=== PATIENT | male | born 1960 | race Caucasian/White ===

== ENCOUNTER 2018-10-18 22:06 | Emergency (ER) | payer BC ==
--- NOTE | 2018-10-18 23:07 | RAD REPORT ---
EXAM DESCRIPTION: RAD - Chest Single View - 10/18/2018 10:57 pm CLINICAL HISTORY: Cough;Fever Chest pain. COMPARISON: <Comparisons> FINDINGS: Portable technique limits examination quality. The lungs are grossly clear. The heart is normal in size. No displaced fractures. IMPRESSION: No acute intrathoracic process suspected.
[2018-10-18 23:12] LABS: Absolute Lymphocytes (CBC) 1.8 K/uL (0.7-4.9); Eosinophils % 3.4 % (0-4.4); Hematocrit 36.2 % (39.6-49.0); Lymphocytes % 16.9 % (15.3-44.8); MPV 7.8 fL (7.6-11.3); Monocytes % 8.4 % (3.3-12.3); RBC Red Blood Cell Count 4.11 M/uL (4.33-5.43)
[2018-10-18 23:39] LABS: Albumin 3.1 g/dL (3.4-5.0); Bilirubin Total 0.8 mg/dL (0.2-1.0); Potassium 4.1 mmol/L (3.5-5.1); Protein, Total 6.9 g/dL (6.4-8.2)
[2018-10-18 23:42] LABS: Urine Blood TRACE (NEG); Urine Glucose NEGATIVE (NEG); Urine Protein 1+ (NEG); Urine Specific Gravity 1.015 (1.005-1.030)
[2018-10-18] MEDS ORDERED: NA CHLORIDE 0.9% 1,000 ML ONE (23:47)
[2018-10-18] MEDS ORDERED: MORPHINE 4 MG/ML SYR ONE (23:47)
[2018-10-18] MEDS ORDERED: ONDANSETRON 4 MG/2 ML VIAL ONE (23:47)
--- NOTE | 2018-10-19 00:12 | ER ---
Nurse's Notes [facility] Name: Leonard Fallon Age: 58 yrs Sex: Male : 1960 Arrival Date: 10/18/2018 Time: 22:08 Bed 14 Private MD: Diagnosis: Cellulitis of left lower limb-knee;Fever, unspecified Presentation: 10/18 22:19 Presenting complaint: states: He had knee replacement one week ago with Dr. olga Jarquin. This evening he spike a fever of 101.5. He took two Tylenol #3 around 9pm. Transition of care: patient was not received from another setting of care. Onset of symptoms was October 18, 2018. Risk Assessment: Do you want to hurt yourself or someone else? Patient reports no desire to harm self or others. Initial Sepsis Screen: Does the patient meet any 2 criteria? No. Patient's initial sepsis screen is negative. Does the patient have a suspected source of infection? No. Patient's initial sepsis screen is negative. Care prior to arrival: Medication(s) given: Tylenol #3- 2 tabs. 22:19 Method Of Arrival: Wheelchair ed1 22:19 Acuity: JOCELINE 3 ed1 Triage Assessment: 22:22 General: Appears uncomfortable, Behavior is calm, cooperative. Pain: Complains of pain ed1 in left knee Pain currently is 5 out of 10 on a pain scale. Quality of pain is described as aching. Historical: - Allergies: 22:22 Celebrex; ed1 22:22 Lortab; ed1 - Home Meds: 22:22 amlodipine 10 mg tab 1 tab once daily [Active]; Flomax 0.4 mg Oral cp24 1 cap once ed1 daily [Active]; aspirin 325 mg Oral tab 1 tab once daily [Active]; acetaminophen-codeine 300-15 mg Oral tab 2 tabs every 6 hours [Active]; - PMHx: 22:22 Hypertension; Kidney stones; ed1 - PSHx: 22:22 Knee surgery; Lithotripsy; ed1 - Immunization history:: Adult Immunizations up to date. - Social history:: Smoking status: Patient/guardian denies using tobacco. - Ebola Screening: : Patient negative for fever greater than or equal to 101.5 degrees Fahrenheit, and additional compatible Ebola Virus Disease symptoms Patient denies exposure to infectious person Patient denies travel to an Ebola-affected area in the 21 days before illness onset No symptoms or risks identified at this time. - Family history:: not pertinent. Screenin:20 Abuse screen: Denies threats or abuse. Nutritional screening: No deficits noted. jb4 Tuberculosis screening: No symptoms or risk factors identified. Fall Risk IV access (20 points). Ambulatory Aid- Crutches/Cane/Walker (15 pts). Gait- Impaired (20 pts.). Total Andrade Fall Scale indicates High Risk Score (45 or more points). Fall prevention measures have been instituted. Side Rails Up X 2 Placed Close to Nursing Station Frequent Obs/Assessments Occuring Family Present and informed to notify staff if the need to leave the bedside As available patient and family educated on Fall Prevention Program and Strategies. Assessment: 22:20 General: Appears in no apparent distress. uncomfortable, Behavior is calm, cooperative, jb4 appropriate for age. Pain: Complains of pain in left knee Pain does not radiate. Pain currently is 3 out of 10 on a pain scale. Quality of pain is described as stabbing, Pain began 2-3 days ago. Is continuous. Neuro: Level of Consciousness is awake, alert, obeys commands, Oriented to person, place, time, situation. Cardiovascular: Patient's skin is warm and dry. Respiratory: Airway is patent Respiratory effort is even, unlabored, Respiratory pattern is regular, symmetrical. GI: No signs and/or symptoms were reported involving the gastrointestinal system. : No deficits noted. EENT: No signs and/or symptoms were reported regarding the EENT system. Derm: Skin is pink, warm \T\ dry. Surgical site to the left knee. is reddened and inflamed, tender to the touch. Musculoskeletal: Circulation, motion, and sensation intact. Range of motion: limited in left knee. 23:28 Reassessment: Patient appears in no apparent distress at this time. Patient and/or jb4 family updated on plan of care and expected duration. Pain level reassessed. Patient is alert, oriented x 3, equal unlabored respirations, skin warm/dry/pink. back from ultrasound. 10/19 00:30 Reassessment: Patient appears in no apparent distress at this time. Patient and/or jb4 family updated on plan of care and expected duration. Pain level reassessed. Patient is alert, oriented x 3, equal unlabored respirations, skin warm/dry/pink. PT waiting for fluids to finish prior to d/c. 01:30 Reassessment: Patient appears in no apparent distress at this time. Patient and/or jb4 family updated on plan of care and expected duration. Pain level reassessed. Patient is alert, oriented x 3, equal unlabored respirations, skin warm/dry/pink. 02:30 Reassessment: Patient appears in no apparent distress at this time. Patient and/or jb4 family updated on plan of care and expected duration. Pain level reassessed. Patient is alert, oriented x 3, equal unlabored respirations, skin warm/dry/pink. Patient states feeling better. 03:00 Reassessment: Patient appears in no apparent distress at this time. Patient is alert, jb4 oriented x 3, equal unlabored respirations, skin warm/dry/pink. Pt assisted to the car via wheelchair, with patient, carrying patients belongings. verbalized understanding of d/c and follow up instrucitons. Vital Signs: 10/18 22:22 BP 131 / 78; Pulse 83; Resp 18; Temp 97(TE); Pulse Ox 97% on R/A; Weight 102.06 kg; ed1 Height 5 ft. 11 in. (180.34 cm); Pain 5/10; 23:42 BP 121 / 65; Pulse 84; Resp 12; Pulse Ox 95% on R/A; jb4 10/19 01:00 BP 123 / 71; Pulse 95; Resp 12; Pulse Ox 95% on R/A; jb4 02:30 BP 123 / 87; Pulse 88; Resp 16; Temp 98.3(O); Pulse Ox 95% on R/A; jb4 10/18 22:22 Body Mass Index 31.38 (102.06 kg, 180.34 cm) ed1 ED Course: 10/18 22:08 Patient arrived in ED. ag3 22:15 Larry Cueva, RN is Primary Nurse. jb4 22:20 Patient has correct armband on for positive identification. Bed in low position. Call jb4 light in reach. Side rails up X2. Pulse ox on. NIBP on. 22:21 Triage completed. ed1 22:22 Arm band placed on. ed1 22:25 Rojelio Oates MD is Attending Physician. [facility] 22:49 Chest Single View XRAY In Process Unspecified. EDMS 23:08 Inserted saline lock: 20 gauge in left wrist, using aseptic technique. Blood collected. jb4 23:08 Initial lab(s) drawn, by me, sent to lab. First set of blood cultures drawn. jb4 23:25 US Extremity Venous Unilateral Ltd In Process Unspecified. EDMS 23:54 Jermaine Robles MD is Referral Physician. [facility] 10/19 02:30 No provider procedures requiring assistance completed. IV discontinued, intact, jb4 bleeding controlled, No redness/swelling at site. Administered Medications: 10/18 23:37 Drug: Zofran 4 mg Route: IVP; Site: left wrist; [facility] 10/19 01:18 Follow up: Response: No adverse reaction [facility] 10/18 23:39 Drug: NS 0.9% 1000 ml Route: IV; Rate: 1 bolus; Site: left wrist; [facility] 10/19 00:10 Follow up: Response: No adverse reaction; IV Status: Completed infusion; IV Intake: jb4 1000ml 10/18 23:40 Drug: morphine 4 mg Route: IVP; Site: left wrist; 4 10/19 00:10 Follow up: Response: No adverse reaction; Pain is decreased jb4 00:00 Drug: Bactrim (160 mg-800 mg (DS) 1 tablet Route: PO; jb4 01:18 Follow up: Response: No adverse reaction jb4 00:00 Drug: Doxycycline 200 mg Route: PO; jb4 01:18 Follow up: Response: No adverse reaction jb4 00:10 Drug: vancoMYCIN 2 grams Route: IVPB; Rate: calculated rate; Site: left wrist; jb4 02:10 Follow up: Response: No adverse reaction; IV Status: Completed infusion; IV Intake: jb4 500ml Intake: 00:10 IV: 1000ml; Total: 1000ml. jb4 02:10 IV: 500ml; Total: 1500ml. jb4 Outcome: 10/18 23:55 Discharge ordered by . [facility] 10/19 02:30 Discharged to home via wheelchair. jb4 Condition: stable Discharge instructions given to patient, family, Instructed on discharge instructions, follow up and referral plans. medication usage, Demonstrated understanding of instructions, follow-up care, medications, Prescriptions given X 4. 03:04 Patient left the ED. jb4 Signatures: Dispatcher [employer] EDMS Rojelio Oates MD MD cha Riggs, Erika RN RN ed1 Larry Cueva RN RN jb4 Jie Ryan ag3 Corrections: (The following items were deleted from the chart) 10/18 23:28 22:50 General: Appears in no apparent distress. uncomfortable, Behavior is calm, jb4 cooperative, appropriate for age, jb4 23: 22:50 Pain: Complains of pain in left knee Pain does not radiate. Pain currently is 3 jb4 out of 10 on a pain scale. Quality of pain is described as stabbing, Pain began 2-3 days ago. Is continuous, jb4 23: 22:50 Neuro: Level of Consciousness is awake, alert, obeys commands, Oriented to jb4 person, place, time, situation, jb4 23: 22:50 Cardiovascular: Patient's skin is warm and dry. jb4 jb4 23: 22:50 Respiratory: Airway is patent Respiratory effort is even, unlabored, Respiratory jb4 pattern is regular, symmetrical, jb4 : 22:50 GI: No signs and/or symptoms were reported involving the gastrointestinal system. jb4 jb4 23: 22:50 : No deficits noted. jb4 jb4 23: 22:50 EENT: No signs and/or symptoms were reported regarding the EENT system. jb4 jb4 23: 22:50 Derm: Skin is pink, warm \T\ dry. Surgical site to the left knee. is reddened and jb4 inflamed, tender to the touch. jb4 23: 22:50 Musculoskeletal: Circulation, motion, and sensation intact. Range of motion: jb4 limited in left knee jb4
--- NOTE | 2018-10-19 00:13 | EDPHYS ---
Physician Documentation [facility] Name: Leonard Fallon Age: 58 yrs Sex: Male : 1960 Arrival Date: 10/18/2018 Time: 22:08 Bed 14 Private MD: DUNCAN Physician Rojelio Oates HPI: 10/18 22:37 This 58 yrs old Male presents to ER via Wheelchair with complaints of Leg willa Pain, Fever. 22:37 The patient presents with decreased range of motion, pain, swelling, tenderness. The willa complaints affect the lateral aspect of left knee, medial aspect of left knee and left knee. Context: The problem was sustained at home, resulted from an unknown cause. Onset: The symptoms/episode began/occurred 3 day(s) ago. Modifying factors: The symptoms are alleviated by nothing. elevating leg, remaining still, the symptoms are aggravated by movement, weight bearing, bending knee. Associated signs and symptoms: Pertinent positives: swelling, warmth, weakness, of the lateral aspect of left knee, medial aspect of left knee and left knee. Severity of symptoms: At their worst the symptoms were moderate, in the emergency department the symptoms are unchanged. The patient has not experienced similar symptoms in the past. Historical: - Allergies: 22:22 Celebrex; ed1 22:22 Lortab; ed1 - Home Meds: 22:22 amlodipine 10 mg tab 1 tab once daily [Active]; Flomax 0.4 mg Oral cp24 1 cap once ed1 daily [Active]; aspirin 325 mg Oral tab 1 tab once daily [Active]; acetaminophen-codeine 300-15 mg Oral tab 2 tabs every 6 hours [Active]; - PMHx: 22:22 Hypertension; Kidney stones; ed1 - PSHx: 22:22 Knee surgery; Lithotripsy; ed1 - Immunization history:: Adult Immunizations up to date. - Social history:: Smoking status: Patient/guardian denies using tobacco. - Ebola Screening: : Patient negative for fever greater than or equal to 101.5 degrees Fahrenheit, and additional compatible Ebola Virus Disease symptoms Patient denies exposure to infectious person Patient denies travel to an Ebola-affected area in the 21 days before illness onset No symptoms or risks identified at this time. - Family history:: not pertinent. ROS: 22:37 Constitutional: Negative for fever, chills, and weight loss, Eyes: Negative for injury, willa pain, redness, and discharge, ENT: Negative for injury, pain, and discharge, Neck: Negative for injury, pain, and swelling, Cardiovascular: Negative for chest pain, palpitations, and edema, Respiratory: Negative for shortness of breath, cough, wheezing, and pleuritic chest pain, Abdomen/GI: Negative for abdominal pain, nausea, vomiting, diarrhea, and constipation, Back: Negative for injury and pain, : Negative for injury, bleeding, discharge, and swelling, Skin: Negative for injury, rash, and discoloration, Neuro: Negative for headache, weakness, numbness, tingling, and seizure, Psych: Negative for depression, anxiety, suicide ideation, homicidal ideation, and hallucinations, Allergy/Immunology: Negative for hives, rash, and allergies, Endocrine: Negative for neck swelling, polydipsia, polyuria, polyphagia, and marked weight changes, Hematologic/Lymphatic: Negative for swollen nodes, abnormal bleeding, and unusual bruising. 22:37 MS/extremity: Positive for decreased range of motion, pain, swelling, tenderness, of the lateral aspect of left knee, medial aspect of left knee and left knee. Exam: 22:37 Constitutional: This is a well developed, well nourished patient who is awake, alert, willa and in no acute distress. Head/Face: Normocephalic, atraumatic. Eyes: Pupils equal round and reactive to light, extra-ocular motions intact. Lids and lashes normal. Conjunctiva and sclera are non-icteric and not injected. Cornea within normal limits. Periorbital areas with no swelling, redness, or edema. ENT: Nares patent. No nasal discharge, no septal abnormalities noted. Tympanic membranes are normal and external auditory canals are clear. Oropharynx with no redness, swelling, or masses, exudates, or evidence of obstruction, uvula midline. Mucous membranes moist. Neck: Trachea midline, no thyromegaly or masses palpated, and no cervical lymphadenopathy. Supple, full range of motion without nuchal rigidity, or vertebral point tenderness. No Meningismus. Chest/axilla: Normal chest wall appearance and motion. Nontender with no deformity. No lesions are appreciated. Cardiovascular: Regular rate and rhythm with a normal S1 and S2. No gallops, murmurs, or rubs. Normal PMI, no JVD. No pulse deficits. Respiratory: Lungs have equal breath sounds bilaterally, clear to auscultation and percussion. No rales, rhonchi or wheezes noted. No increased work of breathing, no retractions or nasal flaring. Abdomen/GI: Soft, non-tender, with normal bowel sounds. No distension or tympany. No guarding or rebound. No evidence of tenderness throughout. Back: No spinal tenderness. No costovertebral tenderness. Full range of motion. Male : Normal genitalia with no discharge or lesions. Skin: Warm, dry with normal turgor. Normal color with no rashes, no lesions, and no evidence of cellulitis. Neuro: Awake and alert, GCS 15, oriented to person, place, time, and situation. Cranial nerves II-XII grossly intact. Motor strength 5/5 in all extremities. Sensory grossly intact. Cerebellar exam normal. Normal gait. Psych: Awake, alert, with orientation to person, place and time. Behavior, mood, and affect are within normal limits. 22:37 Musculoskeletal/extremity: Extremities: noted in the left leg: decreased ROM, erythema, pain, swelling, tenderness. Vital Signs: 22:22 BP 131 / 78; Pulse 83; Resp 18; Temp 97(TE); Pulse Ox 97% on R/A; Weight 102.06 kg; ed1 Height 5 ft. 11 in. (180.34 cm); Pain 5/10; 23:42 BP 121 / 65; Pulse 84; Resp 12; Pulse Ox 95% on R/A; jb4 10/19 01:00 BP 123 / 71; Pulse 95; Resp 12; Pulse Ox 95% on R/A; jb4 02:30 BP 123 / 87; Pulse 88; Resp 16; Temp 98.3(O); Pulse Ox 95% on R/A; jb4 10/18 22:22 Body Mass Index 31.38 (102.06 kg, 180.34 cm) ed1 MDM: 10/18 22:25 Patient medically screened. [facility] 22:39 Data reviewed: vital signs, nurses notes, lab test result(s), radiologic studies, [facility] doppler, plain films. 23:58 ED course: dw with dr haddad, treat as cellulitis, folllow up with dr haddad in the [facility] am, pt knows and has the appointment . 10/18 22:37 Order name: CBC with Diff; Complete Time: 23:19 [facility] 10/18 22:37 Order name: Comprehensive Metabolic Panel; Complete Time: 23:52 [facility] 10/18 22:37 Order name: Blood Culture Adult (2) [facility] 10/18 22:37 Order name: US Extremity Venous Unilateral Ltd [facility] 10/18 22:37 Order name: Urine Culture [facility] 10/18 23:28 Order name: Urine Dipstick--Ancillary (enter results); Complete Time: 23:52 [facility] 10/18 22:37 Order name: Urine Dipstick-Ancillary (obtain specimen); Complete Time: 23:28 [facility] 10/18 22:37 Order name: Chest Single View XRAY; Complete Time: 23:19 [facility] Administered Medications: 23:37 Drug: Zofran 4 mg Route: IVP; Site: left wrist; [facility] 10/19 01:18 Follow up: Response: No adverse reaction [facility] 10/18 23:39 Drug: NS 0.9% 1000 ml Route: IV; Rate: 1 bolus; Site: left wrist; [facility] 10/19 00:10 Follow up: Response: No adverse reaction; IV Status: Completed infusion; IV Intake: jb4 1000ml 10/18 23:40 Drug: morphine 4 mg Route: IVP; Site: left wrist; [facility] 10/19 00:10 Follow up: Response: No adverse reaction; Pain is decreased [facility] 00:00 Drug: Bactrim (160 mg-800 mg (DS) 1 tablet Route: PO; [facility] 01:18 Follow up: Response: No adverse reaction 00:00 Drug: Doxycycline 200 mg Route: PO; [facility] 01:18 Follow up: Response: No adverse reaction [facility] 00:10 Drug: vancoMYCIN 2 grams Route: IVPB; Rate: calculated rate; Site: left wrist; [facility] 02:10 Follow up: Response: No adverse reaction; IV Status: Completed infusion; IV Intake: jb4 500ml Disposition: 10/18/18 23:55 Discharged to Home. Impression: Cellulitis of left lower limb - knee, Fever, unspecified. - Condition is Stable. - Discharge Instructions: Cellulitis, Adult, Fever, Adult, Cellulitis, Adult, [id number], Fever, Adult, [id number]. - Prescriptions for Doxycycline Hyclate 100 mg Oral Tablet - take 1 tablet by ORAL route every 12 hours; 20 tablet. Bactrim DS 800- 160 mg Oral Tablet - take 1 tablet by ORAL route every 12 hours for 10 days; 20 tablet. Tylenol- Codeine #3 300-30 mg Oral Tablet - take 2 tablets by ORAL route every 6 hours As needed; 24 tablet. Ibuprofen 600 mg Oral Tablet - take 1 tablet by ORAL route every 6 hours As needed take with food; 21 tablet. - Medication Reconciliation Form, Thank You Letter, Antibiotic Education, Prescription Opioid Use form. - Follow up: Private Physician; When: 2 - 3 days; Reason: Recheck today's complaints, Continuance of care, Re-evaluation by your physician. Follow up: Jermaine Robles MD; When: Tomorrow; Reason: Recheck today's complaints, Continuance of care, Re-evaluation by your physician. - Problem is new. - Symptoms have improved. Signatures: Dispatcher [employer] EDMS Rojelio Oates MD MD cha Riggs, Erika RN RN ed1 Larry Cueva RN RN jb4 Corrections: (The following items were deleted from the chart) 03:04 10/18 23:55 10/18/2018 23:55 Discharged to Home. Impression: Cellulitis of left lower jb4 limb - knee; Fever, unspecified. Condition is Stable. Forms are Medication Reconciliation Form, Thank You Letter, Antibiotic Education, Prescription Opioid Use. Follow up: Private Physician; When: 2 - 3 days; Reason: Recheck today's complaints, Continuance of care, Re-evaluation by your physician. Follow up: Jermaine Robles; When: Tomorrow; Reason: Recheck today's complaints, Continuance of care, Re-evaluation by your physician. Problem is new. Symptoms have improved. willa
[2018-10-19] MEDS ORDERED: VANCOMYCIN 1 GM/VIAL ONE (00:20)
[2018-10-19] MEDS ORDERED: SMZ./TMP. 800/160 MG TABLET ONE (00:20)
[2018-10-19] MEDS ORDERED: NA CHLORIDE 0.9% 500 ML ONE (00:21)
[2018-10-19] MEDS ORDERED: DOXYCYCLINE 100 MG CAP PO ONE (00:21)
--- NOTE | 2018-10-19 08:08 | RAD REPORT ---
EXAM DESCRIPTION: US - Extremity Venous Uni Ltd - 10/18/2018 11:25 pm CLINICAL HISTORY: PAIN Leg swelling and edema. COMPARISON: No comparisons FINDINGS: Left lower extremity venous system was interrogated with Doppler technique. Normal flow, c ompressibility and augmentation was noted. There is no DVT present. IMPRESSION: No evidence of left lower extremity deep venous thrombosis.
== END 2018-10-19 03:04 | disposition home or self-care (01) ==
LOC: ER 22:06
DX: L03.116 Cellulitis of left lower limb (principal); Z88.6 Allergy status to analgesic agent; Z88.5 Allergy status to narcotic agent; Z79.82 Long term (current) use of aspirin; I10 Essential (primary) hypertension
CPT/HCPCS: 36415; 71045; 80053; 81003; 85025; 87040; 87086; 87088; 93971; 96361; 96365; 96366; 96375; 99284; J2405; J7030

== ENCOUNTER 2022-12-15 21:53 | Emergency (ER) | payer BC ==
--- OUTSIDE RECORDS SUMMARY | 2022-12-15 21:59 | XMS REPORT | Continuity of Care Document ---
:1960 Author Organization [facility] Address [address] [place] [address] [place] [id number] Care Team Providers Name Role Phone Larisa Hunt DO Primary Care Physician MARGARET AMAYA Attending Clinician Unavailable Pob, [facility] Main Attending Clinician Unavailable Yudy Santizo MD Attending Clinician YUDY SANTIZO Attending Clinician Unavailable Doctor Unassigned, [place] Attending Clinician Unavailable Margaret Villegas Attending Clinician JOSE JORDAN Attending Clinician Unavailable Jose Jordan MD Attending Clinician Larisa Hunt DO Attending Clinician Memo Palumbo MD Attending Clinician LARISA HUNT Attending Clinician Unavailable William Peacock MD Attending Clinician [phone] WILLIAM PEACOCK Attending Clinician Unavailable Vls-Lab Attending Clinician Unavailable 2, Lauren Mda Procedure Rm Attending Clinician Unavailable Only, Adc Test Attending Clinician Unavailable Eben Sánchez MD Attending Clinician EBEN SÁNCHEZ Attending Clinician Unavailable Maninder SANCHEZ, Janel Palumbo Attending Clinician Unavailable Rosanne Almonte MD Attending Clinician ROSANNE ALMONTE Attending Clinician Unavailable MARGARET AMAYA Admitting Clinician Unavailable YUDY SANTIZO Admitting Clinician Unavailable WILLIAM PEACOCK Admitting Clinician Unavailable William Peacock MD Admitting Clinician Payers Payer Name Policy Type Policy Number Effective Date Expiration Date S mahnaz [facility] [id number] 2018 00:00:00 Problems Condition Condition Condition Status Onset Resolution Last Treating Co mments Source Name Details Category Date Date Treatment Clinician Date No known No known Disease Unive rs active active ity of problems problems [facility] Allergies, Adverse Reactions, Alerts Allergy Allergy Status Severity Reaction(s) Onset Inactive Treating Comm ents Source Name Type Date Date Clinician CELECOXI DRUG Active Unknown-Cmnt 2019-0 Un arlet B INGREDI 2-25 ity of 00:00: [address] HYDROCOD DRUG Active N/V 2020-0 Univers ONE-ACET 2-25 ity of AMINOPHE 00:00: [address] Celecoxi Drug Active Unknown - 0 Unive rs b Allergy See comments 2-25 ity of 00:00: [address] Hydrocod Drug Active Nausea 2019-0 Univers one-Acet Allergy and/or 2-25 ity of aminophe Vomiting 00:00: [address] Social History Social Habit Start Date Stop Date Quantity Comments Source Gender identity [facility] to 2022-07-21 2022-07-31 Not sure [facility] SARS-CoV-2 (event) 00:00:00 09:05:00 [facility] History of Social 2022-06-24 2022-06-24 Univers ity of function 00:00:00 00:00:00 [facility] Tobacco use and 2021-01-28 2021-01-28 Smokeless Universit y of exposure 00:00:00 00:00:00 tobacco non-user [facility] Sex Assigned At [birth year] Universit y of 00:00:00 00:00:00 [facility] Smoking Status Start Date Stop Date Source Never smoked [facility] Medications Ordered Filled Start Stop Current Ordering Indication Dosage Frequency Signature Comments Components Source Medication Medication Date Date Medication? Clinician (SIG) Name Name iopamidol No [id number] 130mL 130 mL, Univers (ISOVUE 07 04-07 Intravenou ity o f 370-500 mL) 14:45: 14:41 s, ONCE, 1 [place] injection 00 :00 dose, On Medica l 130 mL 07/31/22 Branch at 0945, Routine Cyanocobala 2020-04 Yes Univer s min-Cobamam 1-18 ity of daria (B12) 05:47: [place] [facility] vitamin B 2020-04 Yes 1{tbl} Take 1 Univ ers complex/fol 1-18 tablet by ity of ic acid [facility] [address] [place] [address] IC ACID [place]) CALCIUM 2020-04 Yes 1{tbl} Take 1 Univer s CARBONATE-V 1-18 tablet by ity of ITAMIN D2 05:47: mouth. [address] Cyanocobala 2020-04 Yes Univer s min-Cobamam 1-18 ity of daria (B12) 05:47: [place] [facility] vitamin B 2020-04 Yes 1{tbl} Take 1 Univ ers complex/fol 1-18 tablet by ity of ic acid (B 05:47: mouth. [place] COMPLEX-FOL [address] [place] [address] IC ACID [place]) CALCIUM 2020-04 Yes 1{tbl} Take 1 Univer s CARBONATE-V 1-18 tablet by ity of ITAMIN D2 05:47: mouth. [address] Cyanocobala 2020-04 Yes Univer s min-Cobamam 1-18 ity of daria (B12) 05:47: [place] [facility] vitamin B 2020-04 Yes 1{tbl} Take 1 Univ ers complex/fol 1-18 tablet by ity of ic acid (B 05:47: mouth. [place] COMPLEX-FOL [address] [place] [address] IC ACID [place]) CALCIUM 2020-04 Yes 1{tbl} Take 1 Univer s CARBONATE-V 1-18 tablet by ity of ITAMIN D2 05:47: mouth. [address] Cyanocobala 2020-04 Yes Univer s min-Cobamam 1-18 ity of daria (B12) 05:47: [place] 5,000- [facility] vitamin B 2020-04 Yes 1{tbl} Take 1 Univ ers complex/fol 1-18 tablet by ity of ic acid (B 05:47: mouth. [place] COMPLEX-FOL [address] [place] [address] IC ACID [place]) CALCIUM 2020-04 Yes 1{tbl} Take 1 Univer s CARBONATE-V 1-18 tablet by ity of ITAMIN D2 05:47: mouth. [place] ORAL [address] [place] [address] Cyanocobala 2020-04 Yes Univer s min-Cobamam 1-18 ity of daria (B12) 05:47: - [facility] vitamin B 2020-04 Yes 1{tbl} Take 1 Univ ers complex/fol 1-18 tablet by ity of ic acid (B 05:47: mouth. [place] COMPLEX-FOL [address] [place] [address] IC ACID [place]) CALCIUM 2020-04 Yes 1{tbl} Take 1 Univer s CARBONATE-V 1-18 tablet by ity of ITAMIN D2 05:47: mouth. [place] ORAL [address] [place] [address] Cyanocobala 2020-04 Yes Univer s min-Cobamam 1-18 ity of daria (B12) 05:47: - [facility] vitamin B 2020-04 Yes 1{tbl} Take 1 Univ ers complex/fol 1-18 tablet by ity of ic acid (B 05:47: mouth. [place] COMPLEX-FOL [address] [place] [address] IC ACID [place]) CALCIUM 2020-04 Yes 1{tbl} Take 1 Univer s CARBONATE-V 1-18 tablet by ity of ITAMIN D2 05:47: mouth. [place] ORAL [address] [place] [address] Cyanocobala 2020-04 Yes Univer s min-Cobamam 1-18 ity of daria (B12) 05:47: [facility] vitamin B 2020-04 Yes 1{tbl} Take 1 Univ ers complex/fol 1-18 tablet by ity of ic acid (B 05:47: mouth. [place] COMPLEX-FOL [address] [place] [address] IC ACID [place]) CALCIUM 2020-04 Yes 1{tbl} Take 1 Univer s CARBONATE-V 1-18 tablet by ity of ITAMIN D2 05:47: mouth. [place] ORAL [address] [place] [address] Cyanocobala 2020-04 Yes Univer s min-Cobamam 1-18 ity of daria (B12) 05:47: - [facility] vitamin B 2020-04 Yes 1{tbl} Take 1 Univ ers complex/fol 1-18 tablet by ity of ic acid (B 05:47: mouth. [place] COMPLEX-FOL [address] [place] [address] IC ACID [place]) CALCIUM 2020-04 Yes 1{tbl} Take 1 Univer s CARBONATE-V 1-18 tablet by ity of ITAMIN D2 05:47: mouth. [place] ORAL [address] [place] [address] Cyanocobala 2020-04 Yes Univer s min-Cobamam 1-18 ity of daria (B12) 05:47: [place] [facility] vitamin B 2020-04 Yes 1{tbl} Take 1 Univ ers complex/fol 1-18 tablet by ity of ic acid (B 05:47: mouth. [place] COMPLEX-FOL [address] [place] [address] IC ACID [place]) CALCIUM 2020-04 Yes 1{tbl} Take 1 Univer s CARBONATE-V 1-18 tablet by ity of ITAMIN D2 05:47: mouth. [place] ORAL [address] [place] [address] Cyanocobala 2020-04 Yes Univer s min-Cobamam 1-18 ity of daria (B12) 05:47: [place] [facility] vitamin B 2020-04 Yes 1{tbl} Take 1 Univ ers complex/fol 1-18 tablet by ity of ic acid (B 05:47: mouth. [place] COMPLEX-FOL [address] [place] [address] IC ACID [place]) CALCIUM 2020-04 Yes 1{tbl} Take 1 Univer s CARBONATE-V 1-18 tablet by ity of ITAMIN D2 05:47: mouth. [place] ORAL [address] [place] [address] Cyanocobala 2020-04 Yes Univer s min-Cobamam 1-18 ity of daria (B12) 05:47: [place] ,- [facility] vitamin B 2020-04 Yes 1{tbl} Take 1 Univ ers complex/fol 1-18 tablet by ity of ic acid (B 05:47: mouth. [place] COMPLEX-FOL [address] [place] [address] IC ACID [place]) CALCIUM 2020-04 Yes 1{tbl} Take 1 Univer s CARBONATE-V 1-18 tablet by ity of ITAMIN D2 05:47: mouth. [place] ORAL 03 [facility] Branch Cyanocobala 2020-04 Yes Univer s min-Cobamam 1-18 ity of daria (B12) 05:47: ,- [facility] vitamin B 2020-04 Yes 1{tbl} Take 1 Univ ers complex/fol 1-18 tablet by ity of ic acid (B 05:47: mouth. [place] COMPLEX-FOL Medical IC ACID [place]) CALCIUM 2020-04 Yes 1{tbl} Take 1 Univer s CARBONATE-V 1-18 tablet by ity of ITAMIN D2 05:47: mouth. [place] ORAL [address] [place] [address] Branch Cyanocobala 2020-04 Yes Univer s min-Cobamam 1-18 ity of daria (B12) 05:47: [place] - [facility] vitamin B 2020-04 Yes 1{tbl} Take 1 Univ ers complex/fol 1-18 tablet by ity of ic acid (B 05:47: mouth. [place] COMPLEX-FOL [address] [place] [address] IC ACID [place]) CALCIUM 2020-04 Yes 1{tbl} Take 1 Univer s CARBONATE-V 1-18 tablet by ity of ITAMIN D2 05:47: mouth. [place] ORAL [address] [place] [address] Cyanocobala 2020-04 Yes Univer s min-Cobamam 1-18 ity of daria (B12) 05:47: - [facility] vitamin B 2020-04 Yes 1{tbl} Take 1 Univ ers complex/fol 1-18 tablet by ity of ic acid (B 05:47: mouth. [place] COMPLEX-FOL 03 Medical IC ACID [place]) CALCIUM 2020-04 Yes 1{tbl} Take 1 Univer s CARBONATE-V 1-18 tablet by ity of ITAMIN D2 05:47: mouth. [place] ORAL [address] [place] [address] Cyanocobala 2020-04 Yes Univer s min-Cobamam 1-18 ity of daria (B12) 05:47: [place] - [facility] vitamin B 2020-04 Yes 1{tbl} Take 1 Univ ers complex/fol 1-18 tablet by ity of ic acid (B 05:47: mouth. [place] COMPLEX-FOL 03 [facility] IC ACID [place]) CALCIUM 2020-04 Yes 1{tbl} Take 1 Univer s CARBONATE-V 1-18 tablet by ity of ITAMIN D2 05:47: mouth. [address] Cyanocobala 2020-04 Yes Univer s min-Cobamam 1-18 ity of daria (B12) 05:47: [place] 5,000-[address] [place] [address] mcg Lozg Branch vitamin B 2020-04 Yes 1{tbl} Take 1 Univ ers complex/fol 1-18 tablet by ity of ic acid (B 05:47: mouth. [facility] IC ACID [place]) CALCIUM 2020-04 Yes 1{tbl} Take 1 Univer s CARBONATE-V 1-18 tablet by ity of ITAMIN D2 05:47: mouth. [address] calcium 2020-04 Yes 1{tbl} Take 1 Univer s citrate-vit 1-16 tablet by ity of lazar D3 315 17:47: [place]. [place] mg-5 mcg 49 [facility] (200 unit) Branch per tablet Docosahexan 2020-04 Yes 1{capsu Take 1 U nivers oic 1-16 le} capsule by ity of Acid-E[place] 17:47: [place]. [place] pent 49 [facility] 120-180 mg Branch Cap magnesium 2020-04 Yes 296mL Take 296 Uni vers citrate 1-16 mL by ity of solution 17:47: mouth. [address] niacin 500 2020-04 Yes 1{capsu Take 1 Un arlet mg CR 1-16 le} capsule by ity of capsule 17:47: mouth. [address] omeprazole 2020-04 Yes 40mg Take 40 mg U nivers 40 mg 1-16 by mouth. ity of capsule 17:47: [address] calcium 2020-04 Yes 1{tbl} Take 1 Univer s citrate-vit 1-16 tablet by ity of lazar D3 315 17:47: mouth. [place] mg-5 mcg 49 Medical (200 unit) Branch per tablet Docosahexan 2020-04 Yes 1{capsu Take 1 U nivers oic 1-16 le} capsule by ity of Acid-[place] 17:47: mouth. [place] pent 49 [facility] 120-180 mg Branch Cap magnesium 2020-04 Yes 296mL Take 296 Uni vers citrate 1-16 mL by ity of solution 17:47: mouth. [address] niacin 500 2020-04 Yes 1{capsu Take 1 Un arlet mg CR 1-16 le} capsule by ity of capsule 17:47: mouth. [address] omeprazole 2020-04 Yes 40mg Take 40 mg U nivers 40 mg 1-16 by mouth. ity of capsule 17:47: [address] calcium 2020-04 Yes 1{tbl} Take 1 Univer s citrate-vit 1-16 tablet by ity of lazar D3 315 17:47: mouth. [place] mg-5 mcg 49 Medical (200 unit) Branch per tablet Docosahexan 2020-04 Yes 1{capsu Take 1 U nivers oic 1-16 le} capsule by ity of Acid-E[place]osa 17:47: mouth. [place] pent 49 [facility] 120-180 mg Branch Cap magnesium 2020-04 Yes 296mL Take 296 Uni vers citrate 1-16 mL by ity of solution 17:47: mouth. [address] niacin 500 2020-04 Yes 1{capsu Take 1 Un arlet mg CR 1-16 le} capsule by ity of capsule 17:47: mouth. [address] omeprazole 2020-04 Yes 40mg Take 40 mg U nivers 40 mg 1-16 by mouth. ity of capsule 17:47: [address] calcium 2020-04 Yes 1{tbl} Take 1 Univer s citrate-vit 1-16 tablet by ity of lazar D3 315 17:47: mouth. [place] mg-5 mcg 49 Medical (200 unit) Branch per tablet Docosahexan 2020-04 Yes 1{capsu Take 1 U nivers oic 1-16 le} capsule by ity of Acid-E[place]osa 17:47: mouth. [place] pent 49 [facility] 120-180 mg Branch Cap magnesium 2020-04 Yes 296mL Take 296 Uni vers citrate 1-16 mL by ity of solution 17:47: mouth. [address] niacin 500 2020-04 Yes 1{capsu Take 1 Un arlet mg CR 1-16 le} capsule by ity of capsule 17:47: mouth. [address] omeprazole 2020-04 Yes 40mg Take 40 mg U nivers 40 mg 1-16 by mouth. ity of capsule 17:47: [address] calcium 2020-04 Yes 1{tbl} Take 1 Univer s citrate-vit 1-16 tablet by ity of lazar D3 315 17:47: mouth. [place] mg-5 mcg 49 Medical (200 unit) Branch per tablet Docosahexan 2020-04 Yes 1{capsu Take 1 U nivers oic 1-16 le} capsule by ity of Acid-E[place]osa 17:47: mouth. [place] pent 49 [facility] 120-180 mg Branch Cap magnesium 2020-04 Yes 296mL Take 296 Uni vers citrate 1-16 mL by ity of solution 17:47: mouth. [address] niacin 500 2020-04 Yes 1{capsu Take 1 Un arlet mg CR 1-16 le} capsule by ity of capsule 17:47: mouth. [address] omeprazole 2020-04 Yes 40mg Take 40 mg U nivers 40 mg 1-16 by mouth. ity of capsule 17:47: [address] calcium 2020-04 Yes 1{tbl} Take 1 Univer s citrate-vit 1-16 tablet by ity of lazar D3 315 17:47: mouth. [place] mg-5 mcg 49 Medical (200 unit) Branch per tablet Docosahexan 2020-04 Yes 1{capsu Take 1 U nivers oic 1-16 le} capsule by ity of Acid-Eicosa 17:47: mouth. [place] pent 49 [facility] 120-180 mg Branch Cap magnesium 2020-04 Yes 296mL Take 296 Uni vers citrate 1-16 mL by ity of solution 17:47: mouth. [address] niacin 500 2020-04 Yes 1{capsu Take 1 Un arlet mg CR 1-16 le} capsule by ity of capsule 17:47: mouth. [address] omeprazole 2020-04 Yes 40mg Take 40 mg U nivers 40 mg 1-16 by mouth. ity of capsule 17:47: [address] calcium 2020-04 Yes 1{tbl} Take 1 Univer s citrate-vit 1-16 tablet by ity of lazar D3 315 17:47: mouth. [place] mg-5 mcg 49 Medical (200 unit) Branch per tablet Docosahexan 2020-04 Yes 1{capsu Take 1 U nivers oic 1-16 le} capsule by ity of Acid-E[place]osa 17:47: mouth. [place] pent 49 [facility] 120-180 mg Branch Cap magnesium 2020-04 Yes 296mL Take 296 Uni vers citrate 1-16 mL by ity of solution 17:47: mouth. [address] niacin 500 2020-04 Yes 1{capsu Take 1 Un arlet mg CR 1-16 le} capsule by ity of capsule 17:47: mouth. [address] omeprazole 2020-04 Yes 40mg Take 40 mg U nivers 40 mg 1-16 by mouth. ity of capsule 17:47: [address] calcium 2020-04 Yes 1{tbl} Take 1 Univer s citrate-vit 1-16 tablet by ity of lazar D3 315 17:47: mouth. [place] mg-5 mcg 49 Medical (200 unit) Branch per tablet Docosahexan 2020-04 Yes 1{capsu Take 1 U nivers oic 1-16 le} capsule by ity of Acid-[place]osa 17:47: mouth. [place] pent 49 [facility] 120-180 mg Branch Cap magnesium 2020-04 Yes 296mL Take 296 Uni vers citrate 1-16 mL by ity of solution 17:47: mouth. [address] niacin 500 2020-04 Yes 1{capsu Take 1 Un arlet mg CR 1-16 le} capsule by ity of capsule 17:47: mouth. [address] omeprazole 2020-04 Yes 40mg Take 40 mg U nivers 40 mg 1-16 by mouth. ity of capsule 17:47: [address] calcium 2020-04 Yes 1{tbl} Take 1 Univer s citrate-vit 1-16 tablet by ity of lazar D3 315 17:47: mouth. [place] mg-5 mcg 49 Medical (200 unit) Branch per tablet Docosahexan 2020-04 Yes 1{capsu Take 1 U nivers oic 1-16 le} capsule by ity of Acid-[place] 17:47: mouth. [place] pent 49 [facility] 120-180 mg Branch Cap magnesium 2020-04 Yes 296mL Take 296 Uni vers citrate 1-16 mL by ity of solution 17:47: mouth. [address] niacin 500 2020-04 Yes 1{capsu Take 1 Un arlet mg CR 1-16 le} capsule by ity of capsule 17:47: mouth. [address] omeprazole 2020-04 Yes 40mg Take 40 mg U nivers 40 mg 1-16 by mouth. ity of capsule 17:47: [address] calcium 2020-04 Yes 1{tbl} Take 1 Univer s citrate-vit 1-16 tablet by ity of lazar D3 315 17:47: mouth. [place] mg-5 mcg 49 Medical (200 unit) Branch per tablet Docosahexan 2020-04 Yes 1{capsu Take 1 U nivers oic 1-16 le} capsule by ity of Acid-[place] 17:47: mouth. [place] pent 49 [facility] 120-180 mg Branch Cap magnesium 2020-04 Yes 296mL Take 296 Uni vers citrate 1-16 mL by ity of solution 17:47: mouth. [address] niacin 500 2020-04 Yes 1{capsu Take 1 Un arlet mg CR 1-16 le} capsule by ity of capsule 17:47: mouth. [address] omeprazole 2020-04 Yes 40mg Take 40 mg U nivers 40 mg 1-16 by mouth. ity of capsule 17:47: [address] calcium 2020-04 Yes 1{tbl} Take 1 Univer s citrate-vit 1-16 tablet by ity of lazar D3 315 17:47: mouth. [place] mg-5 mcg 49 Medical (200 unit) Branch per tablet Docosahexan 2020-04 Yes 1{capsu Take 1 U nivers oic 1-16 le} capsule by ity of Acid-[place] 17:47: mouth. [place] pent 49 [facility] 120-180 mg Branch Cap magnesium 2020-04 Yes 296mL Take 296 Uni vers citrate 1-16 mL by ity of solution 17:47: mouth. [address] niacin 500 2020-04 Yes 1{capsu Take 1 Un arlet mg CR 1-16 le} capsule by ity of capsule 17:47: mouth. [address] omeprazole 2020-04 Yes 40mg Take 40 mg U nivers 40 mg 1-16 by mouth. ity of capsule 17:47: [address] calcium 2020-04 Yes 1{tbl} Take 1 Univer s citrate-vit 1-16 tablet by ity of lazar D3 315 17:47: mouth. [place] mg-5 mcg 49 Medical (200 unit) Branch per tablet Docosahexan 2020-04 Yes 1{capsu Take 1 U nivers oic 1-16 le} capsule by ity of Acid-[place] 17:47: mouth. [place] pent 49 [facility] 120-180 mg Branch Cap magnesium 2020-04 Yes 296mL Take 296 Uni vers citrate 1-16 mL by ity of solution 17:47: mouth. [address] niacin 500 2020-04 Yes 1{capsu Take 1 Un arlet mg CR 1-16 le} capsule by ity of capsule 17:47: mouth. [address] omeprazole 2020-04 Yes 40mg Take 40 mg U nivers 40 mg 1-16 by mouth. ity of capsule 17:47: [address] calcium 2020-04 Yes 1{tbl} Take 1 Univer s citrate-vit 1-16 tablet by ity of lazar D3 315 17:47: mouth. [place] mg-5 mcg 49 Medical (200 unit) Branch per tablet Docosahexan 2020-04 Yes 1{capsu Take 1 U nivers oic 1-16 le} capsule by ity of Acid-[place]icosa 17:47: mouth. [place] pent 49 [facility] 120-180 mg Branch Cap magnesium 2020-04 Yes 296mL Take 296 Uni vers citrate 1-16 mL by ity of solution 17:47: mouth. [address] niacin 500 2020-04 Yes 1{capsu Take 1 Un arlet mg CR 1-16 le} capsule by ity of capsule 17:47: mouth. [address] omeprazole 2020-04 Yes 40mg Take 40 mg U nivers 40 mg 1-16 by mouth. ity of capsule 17:47: [address] calcium 2020-04 Yes 1{tbl} Take 1 Univer s citrate-vit 1-16 tablet by ity of lazar D3 315 17:47: mouth. [place] mg-5 mcg 49 Medical (200 unit) Branch per tablet Docosahexan 2020-04 Yes 1{capsu Take 1 U nivers oic 1-16 le} capsule by ity of Acid-Eicosa 17:47: mouth. [place] pent 49 [facility] 120-180 mg Branch Cap magnesium 2020-04 Yes 296mL Take 296 Uni vers citrate 1-16 mL by ity of solution 17:47: mouth. [address] niacin 500 2020-04 Yes 1{capsu Take 1 Un arlet mg CR 1-16 le} capsule by ity of capsule 17:47: mouth. [address] omeprazole 2020-04 Yes 40mg Take 40 mg U nivers 40 mg 1-16 by mouth. ity of capsule 17:47: [address] calcium 2020-04 Yes 1{tbl} Take 1 Univer s citrate-vit 1-16 tablet by ity of lazar D3 315 17:47: mouth. [place] mg-5 mcg 49 Medical (200 unit) Branch per tablet Docosahexan 2020-04 Yes 1{capsu Take 1 U nivers oic 1-16 le} capsule by ity of Acid-[place]osa 17:47: mouth. [place] pent 49 [facility] 120-180 mg Branch Cap magnesium 2020-04 Yes 296mL Take 296 Uni vers citrate 1-16 mL by ity of solution 17:47: mouth. [address] niacin 500 2020-04 Yes 1{capsu Take 1 Un arlet mg CR 1-16 le} capsule by ity of capsule 17:47: mouth. [address] omeprazole 2020-04 Yes 40mg Take 40 mg U nivers 40 mg 1-16 by mouth. ity of capsule 17:47: [address] calcium 2020-04 Yes 1{tbl} Take 1 Univer s citrate-vit 1-16 tablet by ity of lazar D3 315 17:47: mouth. [place] mg-5 mcg 49 Medical (200 unit) Branch per tablet Docosahexan 2020-04 Yes 1{capsu Take 1 U nivers oic 1-16 le} capsule by ity of Acid-[place]icosa 17:47: mouth. [place] pent 49 [facility] 120-180 mg Branch Cap magnesium 2020-04 Yes 296mL Take 296 Uni vers citrate 1-16 mL by ity of solution 17:47: mouth. [address] niacin 500 2020-04 Yes 1{capsu Take 1 Un arlet mg CR 1-16 le} capsule by ity of capsule 17:47: mouth. [address] Branch omeprazole 2020-04 Yes 40mg Take 40 mg U nivers 40 mg 1-16 by mouth. ity of capsule 17:47: [address] Branch acetaminoph 2020-04 Yes [id number] 650mg Take 1 Univers en (TYLENOL 1-16 tablet by ity of 8 HOUR) 650 00:00: mouth [place] mg CR 00 every 6 Medical tablet (six) Branch hours. ibuprofen 2020-04 Yes [id number] 600mg Take 1 U nivers 600 mg 1-16 tablet by ity of tablet 00:00: mouth [place] 00 every 6 Medical (six) Branch hours as needed (Alternate with tylenol every 6 hours). acetaminoph 2020-04 Yes [id number] 650mg Take 1 Univers en (TYLENOL 1-16 tablet by ity of 8 HOUR) 650 00:00: mouth [place] mg CR 00 every 6 Medical tablet (six) Branch hours. ibuprofen 2020-04 Yes [id number] 600mg Take 1 U nivers 600 mg 1-16 tablet by ity of tablet 00:00: mouth [place] 00 every 6 Medical (six) Branch hours as needed (Alternate with tylenol every 6 hours). acetaminoph 2020-04 Yes [id number] 650mg Take 1 Univers en (TYLENOL 1-16 tablet by ity of 8 HOUR) 650 00:00: mouth [place] mg CR 00 every 6 Medical tablet (six) Branch hours. ibuprofen 2020-04 Yes [id number] 600mg Take 1 U nivers 600 mg 1-16 tablet by ity of tablet 00:00: mouth [place] 00 every 6 Medical (six) Branch hours as needed (Alternate with tylenol every 6 hours). acetaminoph 2020-04 Yes [id number] 650mg Take 1 Univers en (TYLENOL 1-16 tablet by ity of 8 HOUR) 650 00:00: mouth [place] mg CR 00 every 6 Medical tablet (six) Branch hours. ibuprofen 2020-04 Yes [id number] 600mg Take 1 U nivers 600 mg 1-16 tablet by ity of tablet 00:00: mouth [place] 00 every 6 Medical (six) Branch hours as needed (Alternate with tylenol every 6 hours). acetaminoph 2020-04 Yes [id number] 650mg Take 1 Univers en (TYLENOL 1-16 tablet by ity of 8 HOUR) 650 00:00: mouth [place] mg CR 00 every 6 Medical tablet (six) Branch hours. ibuprofen 2020-04 Yes [id number] 600mg Take 1 U nivers 600 mg 1-16 tablet by ity of tablet 00:00: mouth [place] 00 every 6 Medical (six) Branch hours as needed (Alternate with tylenol every 6 hours). acetaminoph 2020-04 Yes [id number] 650mg Take 1 Univers en (TYLENOL 1-16 tablet by ity of 8 HOUR) 650 00:00: mouth [place] mg CR 00 every 6 Medical tablet (six) Branch hours. ibuprofen 2020-04 Yes [id number] 600mg Take 1 U nivers 600 mg 1-16 tablet by ity of tablet 00:00: mouth [place] 00 every 6 Medical (six) Branch hours as needed (Alternate with tylenol every 6 hours). acetaminoph 2020-04 Yes [id number] 650mg Take 1 Univers en (TYLENOL 1-16 tablet by ity of 8 HOUR) 650 00:00: mouth [place] mg CR 00 every 6 Medical tablet (six) Branch hours. ibuprofen 2020-04 Yes [id number] 600mg Take 1 U nivers 600 mg 1-16 tablet by ity of tablet 00:00: mouth [place] 00 every 6 Medical (six) Branch hours as needed (Alternate with tylenol every 6 hours). acetaminoph 2020-04 Yes [id number] 650mg Take 1 Univers en (TYLENOL 1-16 tablet by ity of 8 HOUR) 650 00:00: mouth [place] mg CR 00 every 6 Medical tablet (six) Branch hours. ibuprofen 2020-04 Yes [id number] 600mg Take 1 U nivers 600 mg 1-16 tablet by ity of tablet 00:00: mouth [place] 00 every 6 Medical (six) Branch hours as needed (Alternate with tylenol every 6 hours). acetaminoph 2020-04 Yes [id number] 650mg Take 1 Univers en (TYLENOL 1-16 tablet by ity of 8 HOUR) 650 00:00: mouth [place] mg CR 00 every 6 Medical tablet (six) Branch hours. ibuprofen 2020-04 Yes [id number] 600mg Take 1 U nivers 600 mg 1-16 tablet by ity of tablet 00:00: mouth [place] 00 every 6 Medical (six) Branch hours as needed (Alternate with tylenol every 6 hours). acetaminoph 2020-04 Yes [id number] 650mg Take 1 Univers en (TYLENOL 1-16 tablet by ity of 8 HOUR) 650 00:00: mouth [place] mg CR 00 every 6 Medical tablet (six) Branch hours. ibuprofen 2020-04 Yes [id number] 600mg Take 1 U nivers 600 mg 1-16 tablet by ity of tablet 00:00: mouth [place] 00 every 6 Medical (six) Branch hours as needed (Alternate with tylenol every 6 hours). acetaminoph 2020-04 Yes [id number] 650mg Take 1 Univers en (TYLENOL 1-16 tablet by ity of 8 HOUR) 650 00:00: mouth [place] mg CR 00 every 6 Medical tablet (six) Branch hours. ibuprofen 2020-04 Yes [id number] 600mg Take 1 U nivers 600 mg 1-16 tablet by ity of tablet 00:00: mouth [place] 00 every 6 Medical (six) Branch hours as needed (Alternate with tylenol every 6 hours). acetaminoph 2020-04 Yes [id number] 650mg Take 1 Univers en (TYLENOL 1-16 tablet by ity of 8 HOUR) 650 00:00: mouth [place] mg CR 00 every 6 Medical tablet (six) Branch hours. ibuprofen 2020-04 Yes [id number] 600mg Take 1 U nivers 600 mg 1-16 tablet by ity of tablet 00:00: mouth [place] 00 every 6 Medical (six) Branch hours as needed (Alternate with tylenol every 6 hours). acetaminoph 2020-04 Yes [id number] 650mg Take 1 Univers en (TYLENOL 1-16 tablet by ity of 8 HOUR) 650 00:00: mouth [place] mg CR 00 every 6 Medical tablet (six) Branch hours. ibuprofen 2020-04 Yes [id number] 600mg Take 1 U nivers 600 mg 1-16 tablet by ity of tablet 00:00: mouth [place] 00 every 6 Medical (six) Branch hours as needed (Alternate with tylenol every 6 hours). acetaminoph 2020-04 Yes [id number] 650mg Take 1 Univers en (TYLENOL 1-16 tablet by ity of 8 HOUR) 650 00:00: mouth [place] mg CR 00 every 6 Medical tablet (six) Branch hours. ibuprofen 2020-04 Yes [id number] 600mg Take 1 U nivers 600 mg 1-16 tablet by ity of tablet 00:00: mouth [place] 00 every 6 Medical (six) Branch hours as needed (Alternate with tylenol every 6 hours). acetaminoph 2020-04 Yes [id number] 650mg Take 1 Univers en (TYLENOL 1-16 tablet by ity of 8 HOUR) 650 00:00: mouth [place] mg CR 00 every 6 Medical tablet (six) Branch hours. ibuprofen 2020-04 Yes [id number] 600mg Take 1 U nivers 600 mg 1-16 tablet by ity of tablet 00:00: mouth [place] 00 every 6 Medical (six) Branch hours as needed (Alternate with tylenol every 6 hours). acetaminoph 2020-04 Yes [id number] 650mg Take 1 Univers en (TYLENOL 1-16 tablet by ity of 8 HOUR) 650 00:00: mouth [place] mg CR 00 every 6 Medical tablet (six) Branch hours. ibuprofen 2020-04 Yes [id number] 600mg Take 1 U nivers 600 mg 1-16 tablet by ity of tablet 00:00: mouth [place] 00 every 6 Medical (six) Branch hours as needed (Alternate with tylenol every 6 hours). etodolac 2020-0 Yes Univers 500 mg 9-21 ity of tablet 00:00: Medical Branch etodolac 2020-0 Yes Univers 500 mg 9-21 ity of tablet 00:00: Medical Branch etodolac 1-0 Yes Univers 500 mg 9-21 ity of tablet 00:00: Medical Branch etodolac 1-0 Yes Univers 500 mg 9-21 ity of tablet 00:00: Medical Branch etodolac 1-0 Yes Univers 500 mg 9-21 ity of tablet 00:00: Medical Branch etodolac 1-0 Yes Univers 500 mg 9-21 ity of tablet 00:00: Medical Branch etodolac 1-0 Yes Univers 500 mg 9-21 ity of tablet 00:00: Medical Branch etodolac 1-0 Yes Univers 500 mg 9-21 ity of tablet 00:00: Medical Branch etodolac 2020-0 Yes Univers 500 mg 9-21 ity of tablet 00:00: Medical Branch etodolac 2020-0 Yes Univers 500 mg 9-21 ity of tablet 00:00: Medical Branch etodolac 2020-0 Yes Univers 500 mg 9-21 ity of tablet 00:00: Medical Branch etodolac 2020-0 Yes Univers 500 mg 9-21 ity of tablet 00:00: Medical Branch etodolac 2020-0 Yes Univers 500 mg 9-21 ity of tablet 00:00: [place] [facility] Branch etodolac 2020-0 Yes Univers 500 mg 9-21 ity of tablet 00:00: Medical Branch etodolac 2020-0 Yes Univers 500 mg 9-21 ity of tablet 00:00: [place] Medical Branch etodolac 2020-0 Yes Univers 500 mg 9-21 ity of tablet 00:00: Medical Branch DUREZOL 0 Yes INSTILL 1 Unive rs 0.05 % Drop 9-08 DROP INTO ity of 00:00: BOTH EYES [place] 00 EVERY 2 Medical HOURS Branch WHILE AWAKE FOR 3 DAYS, THEN 4 TIMES A DAY DUREZOL 0 Yes INSTILL 1 Unive rs 0.05 % Drop 9-08 DROP INTO ity of 00:00: BOTH EYES [place] 00 EVERY 2 Medical HOURS Branch WHILE AWAKE FOR 3 DAYS, THEN 4 TIMES A DAY DUREZOL 0 Yes INSTILL 1 Unive rs 0.05 % Drop 9-08 DROP INTO ity of 00:00: BOTH EYES [place] 00 EVERY 2 Medical HOURS Branch WHILE AWAKE FOR 3 DAYS, THEN 4 TIMES A DAY DUREZOL 0 Yes INSTILL 1 Unive rs 0.05 % Drop 9-08 DROP INTO ity of 00:00: BOTH EYES [place] 00 EVERY 2 Medical HOURS Branch WHILE AWAKE FOR 3 DAYS, THEN 4 TIMES A DAY DUREZOL 0 Yes INSTILL 1 Unive rs 0.05 % Drop 9-08 DROP INTO ity of 00:00: BOTH EYES [place] 00 EVERY 2 Medical HOURS Branch WHILE AWAKE FOR 3 DAYS, THEN 4 TIMES A DAY DUREZOL 2020-0 Yes INSTILL 1 Unive rs 0.05 % Drop 9-08 DROP INTO ity of 00:00: BOTH EYES [place] 00 EVERY 2 Medical HOURS Branch WHILE AWAKE FOR 3 DAYS, THEN 4 TIMES A DAY DUREZOL 2020-0 Yes INSTILL 1 Unive rs 0.05 % Drop 9-08 DROP INTO ity of 00:00: BOTH EYES [place] 00 EVERY 2 Medical HOURS Branch WHILE AWAKE FOR 3 DAYS, THEN 4 TIMES A DAY DUREZOL 2020-0 Yes INSTILL 1 Unive rs 0.05 % Drop 9-08 DROP INTO ity of 00:00: BOTH EYES [place] 00 EVERY 2 Medical HOURS Branch WHILE AWAKE FOR 3 DAYS, THEN 4 TIMES A DAY DUREZOL 0 Yes INSTILL 1 Unive rs 0.05 % Drop 9-08 DROP INTO ity of 00:00: BOTH EYES [place] 00 EVERY 2 Medical HOURS Branch WHILE AWAKE FOR 3 DAYS, THEN 4 TIMES A DAY DUREZOL 0 Yes INSTILL 1 Unive rs 0.05 % Drop 9-08 DROP INTO ity of 00:00: BOTH EYES [place] 00 EVERY 2 Medical HOURS Branch WHILE AWAKE FOR 3 DAYS, THEN 4 TIMES A DAY DUREZOL 0 Yes INSTILL 1 Unive rs 0.05 % Drop 9-08 DROP INTO ity of 00:00: BOTH EYES [place] 00 EVERY 2 Medical HOURS Branch WHILE AWAKE FOR 3 DAYS, THEN 4 TIMES A DAY DUREZOL 0 Yes INSTILL 1 Unive rs 0.05 % Drop 9-08 DROP INTO ity of 00:00: BOTH EYES [place] 00 EVERY 2 Medical HOURS Branch WHILE AWAKE FOR 3 DAYS, THEN 4 TIMES A DAY DUREZOL 2020-0 Yes INSTILL 1 Unive rs 0.05 % Drop 9-08 DROP INTO ity of 00:00: BOTH EYES [place] 00 EVERY 2 Medical HOURS Branch WHILE AWAKE FOR 3 DAYS, THEN 4 TIMES A DAY DUREZOL 0 Yes INSTILL 1 Unive rs 0.05 % Drop 9-08 DROP INTO ity of 00:00: BOTH EYES [place] 00 EVERY 2 Medical HOURS Branch WHILE AWAKE FOR 3 DAYS, THEN 4 TIMES A DAY DUREZOL 0 Yes INSTILL 1 Unive rs 0.05 % Drop 9-08 DROP INTO ity of 00:00: BOTH EYES [place] 00 EVERY 2 Medical HOURS Branch WHILE AWAKE FOR 3 DAYS, THEN 4 TIMES A DAY DUREZOL 2020-0 Yes INSTILL 1 Unive rs 0.05 % Drop 9-08 DROP INTO ity of 00:00: [place] 00 EVERY 2 Medical HOURS Branch WHILE AWAKE FOR 3 DAYS, THEN 4 TIMES A DAY amLODIPine 2020-0 Yes TAKE 1 Unive rs 10 mg 3-30 TABLET BY ity of tablet 00:00: MOUTH EVERY DAY Medical Branch amLODIPine 2020-0 Yes TAKE 1 Unive rs 10 mg 3-30 TABLET BY ity of tablet 00:00: MOUTH EVERY DAY Medical Branch amLODIPine 2020-0 Yes TAKE 1 Unive rs 10 mg 3-30 TABLET BY ity of tablet 00:00: MOUTH EVERY DAY Medical Branch amLODIPine 2020-0 Yes TAKE 1 Unive rs 10 mg 3-30 TABLET BY ity of tablet 00:00: MOUTH EVERY DAY Medical Branch amLODIPine 2020-0 Yes TAKE 1 Unive rs 10 mg 3-30 TABLET BY ity of tablet 00:00: MOUTH EVERY DAY Medical Branch amLODIPine 2020-0 Yes TAKE 1 Unive rs 10 mg 3-30 TABLET BY ity of tablet 00:00: [facility] EVERY DAY Medical Branch amLODIPine 2020-0 Yes TAKE 1 Unive rs 10 mg 3-30 TABLET BY ity of tablet 00:00: MOUTH EVERY DAY Medical Branch amLODIPine 2020-0 Yes TAKE 1 Unive rs 10 mg 3-30 TABLET BY ity of tablet 00:00: MOUTH EVERY DAY Medical Branch amLODIPine 2020-0 Yes TAKE 1 Unive rs 10 mg 3-30 TABLET BY ity of tablet 00:00: [facility] EVERY DAY Medical Branch amLODIPine 1-0 Yes TAKE 1 Unive rs 10 mg 3-30 TABLET BY ity of tablet 00:00: MOUTH EVERY DAY Medical Branch amLODIPine 2020-0 Yes TAKE 1 Unive rs 10 mg 3-30 TABLET BY ity of tablet 00:00: MOUTH EVERY DAY Medical Branch amLODIPine 2020-0 Yes TAKE 1 Unive rs 10 mg 3-30 TABLET BY ity of tablet 00:00: MOUTH EVERY DAY Medical Branch amLODIPine 2020-0 Yes TAKE 1 Unive rs 10 mg 3-30 TABLET BY ity of tablet 00:00: MOUTH EVERY DAY Medical Branch amLODIPine 2020-0 Yes TAKE 1 Unive rs 10 mg 3-30 TABLET BY ity of tablet 00:00: MOUTH 00 EVERY DAY Medical Branch amLODIPine 0 Yes TAKE 1 Unive rs 10 mg 3-30 TABLET BY ity of tablet 00:00: MOUTH [place] EVERY DAY Medical Branch amLODIPine 0 Yes TAKE 1 Unive rs 10 mg 3-30 TABLET BY ity of tablet 00:00: MOUTH [place] EVERY DAY Medical Branch Vital Signs Vital Name Observation Time Observation Value Comments Source Systolic blood 2022-06-24 19:36:00 134 mm[Hg] Univer sity of pressure [facility] Diastolic blood 2022-06-24 19:36:00 84 mm[Hg] [facility] Heart rate 2022-06-24 19:36:00 95 /min [facility] Body temperature 2022-06-24 19:36:00 36.61 Leydi [facility] Respiratory rate 2022-06-24 19:36:00 18 /min [facility] Body height 2022-06-24 19:36:00 175.3 cm [facility] Body weight 2022-06-24 19:36:00 104.327 kg [facility] BMI 2022-06-24 19:36:00 33.97 kg/m2 [facility] Oxygen saturation in 2022-06-24 19:36:00 99 /min [facility] blood by [facility] [place] [facility] Pulse oximetry Branch Procedures Procedure Date / Time Performing Clinician Source Performed ALPHA FETOPROTEIN 2022-11-16 14:12:00 Yudy Santizo [facility] PHYSICIAN ORDERS 2022-11-16 05:01:00 Doctor Unassigned, [facility] [place] [facility] CT ABDOMEN PELVIS W WO 2022-07-31 14:55:30 [facility] CBC WITH DIFF 2022-07-01 16:51:00 [facility] US RETROPERITONEAL 2022-07-01 16:43:49 Jose Jordan [facility] COMPLETE [place] CONSENT/REFUSAL FOR 2022-07-01 14:51:36 Doctor Unassigned, [facility] DIAGNOSIS AND TREATMENT [place] [facility] US ABDOMEN LIMITED 2022-03-06 19:40:00 Yudy Santizo [facility] NOTICE OF PRIVACY 2022-03-06 18:00:07 Doctor Unassigned, [facility] PRACTICES [place] [facility] CONSENT/REFUSAL FOR 2022-03-06 17:59:39 Doctor Unassigned, [facility] DIAGNOSIS AND TREATMENT [place] [facility] ASSIGNMENT OF BENEFITS 2022-03-06 17:59:19 Doctor Unassigned, [facility] [place] [facility] PHOSPHORUS 2021-12-26 15:01:00 [facility] URIC ACID 2021-12-26 15:01:00 [facility] MAGNESIUM 2021-12-26 15:01:00 [facility] COMP. METABOLIC PANEL 2021-12-26 15:01:00 Larisa Hunt [facility] ([id number]) [facility] LIPID PANEL (48655)(TOTAL 2021-12-26 15:01:00 Larisa Hunt [facility] TRIGLY[facility]ERID[facility], HDL) CBC WITH DIFF 2021-12-26 15:01:00 [facility] URINALYSIS 2021-12-26 15:01:00 [facility] CREATININE, URINE RANDOM 2021-12-26 15:01:00 Larisa Hunt [facility] Encounters Start End Encounter Admission Attending Care Care Encounter Source Date/Time Date/Time Type Type Clinicians Facility Department ID 2023-06-23 2023-06-23 Outpatient Janae AMAYA [facility] [id number] Univers 08:45:00 08:45:00 MARGARET valadez [facility] 2022-11-16 2022-11-16 Dx Board Operator Mitch, An Lab Main [facility] 1.2.8 40.114 [id number] Univers 09:00:00 09:15:00 Visit Yudy Sant[facility] [id number] [facility] [place] [id number] Ma dical NAL [address] [facility] 2022-11-16 2022-11-16 Outpatient R DARLYN [facility] [id number] Univers 09:00:00 09:00:00 YUDY ity of [facility] 2022-11-16 2022-11-16 Orders Doctor MARIANA 1.2.840.114 [id number] Univers 00:00:00 00:00:00 Only Unassigned, LEATHA 350.1.13.10 ity of [place] [facility] 4.2.7.2.686 [place] [id number] [facility] [address] [place] 2022-07-31 2022-07-31 [facility] [id number] Univers 09:06:00 23:59:00 MARGARET ity o f [facility] 2022-07-31 2022-07-31 [facility] 1.2.840.114 [id number] Univers 09:06:00 23:59:00 Encounter Margaret WORTHY 350.1.13.10 ity of [place] 4.2.7.2.686 [facility] s [place] [id number] [facility] [address] [place] 2022-07-15 2022-07-15 [facility] 1.2.840.114 [id number] Univers 00:00:00 00:00:00 Management Margaret DEACON [id number] ity of [place] [id number] Ma dical NAL [address] [facility] 2022-07-01 2022-07-01 [facility] [id number] Univers 08:53:08 23:59:00 JOSE ity of [facility] 2022-07-01 2022-07-01 [facility] 1.2.060.142 [id number] Univers 08:53:08 23:59:00 Encounter Jose BLEDSOEDIONNA 350.1.13.10 ity of [place] [id number] [facility] [address] [place] 2022-07-01 2022-07-01 Dx Board Operator Mitch, Adc Lab Main [facility] 1.2.8 40.114 [id number] Univers 09:30:00 09:45:00 Visit Larisa Hunt 350.1.13.10 ity of [place] 4[place].2.[place] [id number] Ma dical NAL 353 [facility] 2022-07-01 2022-07-01 Orders Doctor MARIANA 1.2.840.114 [id number] Univers 00:00:00 00:00:00 Only Unassigned, LEATHA 350.1.13.10 ity of [facility] 4.2.7.2.686 [place] [id number] [facility] [address] [place] 2022-06-24 2022-06-24 Dx Board Operator Mitch, Adc Lab Main [facility] 1.2.8 40.114 [id number] Univers 14:00:00 14:15:00 Visit Jose Jordan 350.1.13.10 ity of [place] 4[place] [id number] Ma dical NAL 353 [facility] 2022-06-24 2022-06-24 Outpatient R JULIAN [facility] [id number] Univers 13:15:00 13:40:44 [facility] 2022-06-24 2022-06-24 [facility] 1.2.840.114 [id number] Univers 13:15:00 13:40:44 Visit Jose WORTHY 350.1.13.10 i ty of [place] 4[place] [id number] Ma dical NAL [address] [facility] 2022-03-06 2022-03-06 Outpatient R DARLYN [facility] [id number] Univers 11:55:41 23:59:00 YUDY ity [facility] 2022-03-06 2022-03-06 [facility] 1.2.840.114 [id number] Univers 11:55:41 23:59:00 Encounter Yudy WORTHY 350.1.13.10 ity of [place] [facility] 4.2.7.2.[place] [id number] [facility] [address] 2022-03-06 2022-03-06 Dx Board Operator Mitch, Adc Lab Main [facility] 1.2.8 40.114 [id number] Univers 12:15:00 12:30:00 Visit Memo Palumbo DEACON 350.1.13.10 ity of [place] [facility] 4.2.7.2.[place] [id number] Ma dical NAL [address] [facility] 2021-12-26 2021-12-26 Dx Board Operator Mitch, Adc Lab Main [facility] 1.2.8 40.114 [id number] Univers 11:30:00 11:45:00 Visit Larisa Hunt 350.1.13.10 ity of [facility] [facility] 4.2.[place].2.[place] [id number] [address] 2021-12-26 2021-12-26 Outpatient R GILBERT [facility] [id number] Univers 11:30:00 11:30:00 LARISA ity of [facility] 2021-12-26 2021-12-26 Orders Doctor MARIANA 1.2.840.114 [id number] Univers 00:00:00 00:00:00 Only Unassigned, LEATHA 350.1.13.10 ity of [place] [facility] 4.2.7.2.686 [place] [id number] [facility] [address] [place] 2021-09-02 2021-09-02 Outpatient R DARLYN [facility] [id number] Univers 10:27:52 23:59:00 YUDY ity of [facility] 2021-09-02 2021-09-02 [facility] 1.2.840.114 [id number] Univers 10:27:52 23:59:00 Encounter Yudy Elida DEACON 350.1.13.10 ity of [facility] [facility] 4.2.7.2.[place] [id number] [facility] [address] 2021-07-28 2021-07-28 Telephone Julian [facility] 1.2.840.114 [id number] Univers 00:00:00 00:00:00 Jose ANGLEDIONNA 350.1.13.10 i ty of [place] 4[place] [id number] Ma dical [facility] [address] [facility] 2021-06-23 2021-06-23 [facility] [id number] Univers 11:00:00 11:24:19 [facility] 2021-06-23 2021-06-23 Office [facility] 1.2.840.114 [id number] Univers 11:00:00 11:24:19 Visit [facility] DEACON 350.1.13.10 i ty [place] 4[place] [id number] [facility] [address] [facility] 2021-06-23 2021-06-23 Outpatient [facility] [id number] Univers 11:00:00 11:24:19 JOSE ity [facility] 2021-06-23 2021-06-23 Outpatient R GILBERT [facility] [id number] Univers 10:30:00 10:48:41 [facility] 2021-06-23 2021-06-23 Dx Board Operator Mitch, Adc Lab Main [facility] 1.2.8 40.114 [id number] Univers 10:30:00 10:45:00 Visit Larisa Hunt 350.1.13.10 ity of [place] 4[place] [id number] [facility] 353 [facility] 2021-06-23 2021-06-23 Orders Doctor MARIANA 1.2.840.114 [id number] Univers 00:00:00 00:00:00 Only Unassigned, LEATHA 350.1.13.10 ity of [place] [facility] 4.2.7.2.686 [place] [id number] [address] 2021-05-15 2021-05-15 Dx Board Operator Mitch, Adc Lab Main [facility] 1.2.8 40.114 [id number] Univers 08:30:00 08:45:00 Visit William Peacock [place] 350. 1.13.10 ity of [place] 4[place] [id number] Ma dixon DE JESUS [address] [facility] 2021-05-15 2021-05-15 Outpatient R LISSETTE [facility] [id number] Univers 08:30:00 08:30:00 WILLIAM mayo [facility] 2021-05-13 2021-05-13 Dx Board Operator Vls-Lab [facility] 1.2.840.114 [id number] Univers 14:00:00 14:15:00 Visit William Peacock [facility] 350 .1.13.10 ity of [facility] 4.2.7.2.[place] C[place] AT [phone] Ma dixon KIM [address] [place] [address] 2021-05-13 2021-05-13 [facility] [id number] Univers 14:00:00 14:00:00 WILLIAM mayo [facility] 2021-05-13 2021-05-13 [facility] 1.2.840.114 [id number] Univers 13:30:00 13:45:00 Visit William GHOSH 350.1.13.10 it y of [place] [facility] 4.2.7.2.686 [place] CENTER - [id number] Med ical [facility] [address] 2021-05-13 2021-05-13 Outpatient R L[facility]SETTE [facility] [id number] Univers 13:30:00 13:30:00 WILLIAM mayo [facility] 2021-05-13 2021-05-13 [facility] [id number] Univers 13:30:00 13:30:00 WILLIAM mayo [facility] 2021-04-09 2021-04-09 Orders Doctor MARIANA 1.2.840.114 [id number] Univers 00:00:00 00:00:00 Only Unassigned, LEATHA 350.1.13.10 ity of [place] [facility] 4.2.7.2.686 [place] [phone] [place] [address] Branch 2021-04-082021-04-08 Office William Peacock [facility] 1 .2.840.114 [id number] Univers 16:00:00 17:00:00 Visit 2, Lauren Mda Procedure HEALTH 350.1. 13.10 ity of [place] 4.2.7.2.686 [facility] - [id number] [facility] [address] 2021-04-08 2021-04-08 [facility] [id number] Univers 16:00:00 16:00:00 [facility] 2021-04-08 2021-04-08 [facility] [id number] Univers 16:00:00 16:00:00 [facility] 2021-04-01 2021-04-01 [facility] 1.2.840.114 [id number] Univers 11:08:14 11:23:14 Visit [facility] 350.1.13.10 it y of [facility] CANCER 4.2.7.2.686 [facility] CENTER - [phone] Med [facility] [address] 2021-04-01 2021-04-01 Out[facility] [id number] Univers 11:15:00 11:15:00 [facility] 2021-03-10 2021-03-11 [facility] SUU [id number] Univers 05:16:00 17:47:00 WILLIAM mayo [facility] 2021-03-10 2021-03-11 Hospital NANCY Peacock [id number] Univers 05:16:00 17:47:00 Encounter William PALMY 350.1.13.10 ity of [facility] [place].2.[place] [id number] [facility] [address] 2021-03-10 2021-03-10 Surgery NANCY Peacock 1.2.840.114 [id number] Univers 07:15:00 12:35:00 William ZHANG 350.1.13.10 it y of [facility] [place].2.[place] [id number] [facility] 103 [address] 2021-03-10 2021-03-10 Orders Doctor MARIANA 1.2.840.114 [id number] Univers 00:00:00 00:00:00 Only Unassigned, LEATHA 350.1.13.10 ity of [place] [facility] 4.2.7.2.686 [place] [id number] [facility] [address] 2021-03-07 2021-03-07 Laboratory Only, Adc Test [facility] 1.2.840. 114 [id number] Univers 09:43:25 09:58:25 Only Eben Sánchez 350.1.13.10 ity of [place] 4.2.7.2.686 [place] [facility] [id number] [facility] [address] 2021-03-07 2021-03-07 Outpatient R VICTOR M [facility] [id number] Univers 09:45:00 09:45:00 EBEN ity [facility] 2021-03-07 2021-03-07 Outpatient R [facility] [id number] Univers 09:15:00 09:15:00 ity of [facility] 2021-03-07 2021-03-07 Letter MARIANA Dickens 1.2.840.114 [id number] Univers 00:00:00 00:00:00 (Out) Janel ZHANG 350.1.13.10 it y of HOSPITAL 4.2.7.2.686 [place] [id number] [facility] 0[address] 2021-01-28 2021-01-28 [facility] 1.2.840.114 [id number] Univers 15:14:23 16:59:43 Visit [facility] 350.1.13.10 it y of [place] 4.2.7.2.686 [place] Center - [phone] Med ical [facility] 204 [address] 2021-01-28 2021-01-28 Out[facility] [id number] Univers 15:30:00 15:30:00 WILLIAM mayo [facility] 2021-01-21 2021-01-21 Telephone Julian [facility] 1.2.840.114 [id number] Univers 00:00:00 00:00:00 Jose [facility] 350.1.13.10 it y [place] - [phone] [facility] [address] 2021-01-20 2021-01-20 Telephone [facility] 1.2.840.114 [id number] Univers 00:00:00 00:00:00 Jose Ashby 350.1.13.10 i ty of [place] [id number] [address] 2021-01-09 2021-01-09 Office [facility] 1.2.840.114 [id number] Univers 10:31:10 11:25:23 Visit Jose Ashby 350.1.13.10 i ty of [place] 4[place] [id number] [address] 2021-01-09 2021-01-09 Outpatient R [facility] [id number] Univers 10:45:00 10:45:00 JOSE ity of [facility] 2020-12-31 2020-12-31 Telephone [facility] 1.2.840.114 [id number] Univers 00:00:00 00:00:00 Jose Ashby 350.1.13.10 i ty of [place] [id number] [phone] [address] 2020-12-31 2020-12-31 Telephone [facility] [id number] [employer] 00:00:00 00:00:00 Jose Ashby [id number] i ty of [place] [id number] [id number] [address] 2020-12-27 2020-12-27 [facility] [id number] Univers 08:57:40 23:59:00 Encounter Jose Ashby 350.1.13.10 ity of [place] [phone] [facility] [address] 2020-12-27 2020-12-27 [facility] [id number] Univers 08:57:40 23:59:00 Encounter Jose Ashby 350.1.13.10 ity of [place] [phone] [facility] [address] 2020-12-27 2020-12-27 Dx Board Operator Mitch, Adc Lab Main [facility] 1.2.8 40.114 [id number] Univers 08:53:00 09:08:00 Visit Rosanne Almonte Ashby 350.1.13.10 ity of [place] [phone] Ma dical nal [address] [facility] 2020-12-27 2020-12-27 Dx Board Operator Mitch, Adc Lab Main [facility] 1.2.8 40.114 [id number] Univers 08:53:00 09:08:00 [facility] [place] 350.1.13.10 it[place] of [place]2.[place].2.686 [place] [phone] Ma dical nal [address] [facility] 2020-12-27 2020-12-27 [facility] [id number] Univers 08:53:22 08:56:00 Encounter M Ashby 350.1.13.10 ity of [place] 4.2.7.2.686 [facility] [place] [phone] [facility] [address] 2020-12-27 2020-12-27 [facility] ER [id number] Univers 08:53:22 08:56:00 Encounter M Ashby 350.1.13.10 ity of [place] 4.2.7.2.686 [facility] [place] [phone] [facility] [address] 2020-12-27 2020-12-27 Outpatient R [facility] [id number] Univers 00:00:00 00:00:00 ity of [facility] 2020-12-17 2020-12-17 Orders Doctor MARIANA 1.2.840.114 [id number] Univers 00:00:00 00:00:00 Only Unassigned, LEATHA 350.1.13.10 ity of [facility] 4.2.7.2.686 [place] [phone] [address] 2020-08-08 2020-08-08 Orders Doctor MARIANA 1.2.840.114 [id number] Univers 00:00:00 00:00:00 Only Unassigned, LEATHA 350.1.13.10 ity of [facility] [facility] 4.2.7.2.686 [place] [phone] [address] 2020-08-08 2020-08-08 Orders Doctor MARIANA 1.2.840.114 [id number] Univers 00:00:00 00:00:00 Only Unassigned, LEATHA 350.1.13.10 ity of [facility] [facility] 4.2.7.2.686 [place] [phone] [address] 2020-07-29 2020-07-29 Office Julian [facility] 1.2.840.114 [id number] Univers 09:43:17 10:47:08 Visit Jose Worthy 350.1.13.10 i ty [facility] [place] [phone] Ma dical [address] 2020-07-29 2020-07-29 Outpatient R JULIAN [facility] [id number] Univers 10:00:00 10:00:00 JOSE ity of [facility] 2020-07-29 2020-07-29 Orders Doctor MARIANA 1.2.840.114 [id number] Univers 00:00:00 00:00:00 Only Unassigned, LEATHA 350.1.13.10 ity of [facility] 4.2.7.2.686 [place] [phone] [address] 2020-06-13 2020-06-13 [facility] 1.2.840.114 [id number] Univers 12:47:03 23:59:00 Encounter Elida Worthy 350.1.13.10 ity [facility] 4.2.7.2.686 [facility] [phone] [facility] [address] 2020-06-13 2020-06-13 Dx Board Operator Mitch, Adc Lab Main [facility] 1.2.[id number] [facility] 12:55:51 13:10:51 Visit Yudy Santizo Elida BledsoeAshby 350.1.13.10 ity [facility] 4.2.7.2.686 [facility] [phone] Ma dical nal [address] [facility] 2020-06-13 2020-06-13 Outpatient R ROSANNE ALMON[facility] [id number] [facility] 00:00:00 00:00:00 [facility] Results Test Description Test Time Test Comments Results Result Comments Source ALPHA FETOPROTEIN 2022-11-17 13:52:40 Test Item Value Reference Range Interpretation Comme nts AFP (test code = 4244695666) 2.1 ng/mL <=7.5 ADELAIDA (test code = ADELAIDA) Biotin has been reported to cause a negative bias, interpret results relative to patient's use of biotin. Lab Interpretation (test code = 96261-6) [facility] Hospital[facility] (08554)(TOTAL CHOLESTEROL, TRIGLYCERIDES, HDL)2021-12-26 17:29:07 Test Item Value Reference Range Interpretation Comments CHOL (test code = 202 mg/dL 120-200 H 0758706419) HDL (test code = 29 mg/dL See_Comment L [Automated message] 5248997564) The system Yakaz generated this result transmit anthony reference range : >=40. The refer ence range was not u sed to interpret th is result as normal/abnormal . HDLC RATIO (test code = See_Comment H [Au tomated message] 1166433657) The system Yakaz generated this result transmit anthony reference range : <=5.0. The refe rence range was not u sed to interpret th is result as normal/abnormal . TRIG (test code = 210 mg/dL 30-170 H 7397100370) LDL CHOL (test code = 131 mg/dL See_Comment [Auto mated message] 20772-7) The system Yakaz generated this result transmit anthony reference range : <=160. The refe rence range was not u sed to interpret th is result as normal/abnormal . VLDL (test code = 42 mg/dL 5-60 2478708536) Lab Interpretation (test Abnormal code = 06746-1) [facility]. METABOLIC PANEL (62192)2021-12-26 17:28:47 Test Item Value Reference Range Interpretation Comments NA (test code = 140 mmol/L 135-145 2069849239) K (test code = 4.9 mmol/L 3.5-5 7671014952) CL (test code = 101 mmol/L 98-108 2557903974) CO2 TOTAL (test code 29 mmol/L 23-31 = 9187928907) AGAP (test code = 2-16 0843654756) BUN (test code = 13 mg/dL 7-23 5275913273) GLUCOSE (test code = 106 mg/dL 70-110 7033870784) CREATININE (test code 0.76 mg/dL 0.6-1.25 = 2940461006) TOTAL BILI (test code 0.7 mg/dL 0.1-1.1 = 7768055486) CALCIUM (test code = 9.3 mg/dL 8.6-10.6 5598539299) T PROTEIN (test code 7.1 g/dL 6.3-8.2 = 9284951951) ALBUMIN (test code = 4.8 g/dL 3.5-5 2836246058) ALK PHOS (test code = 78 U/L 34-122 3671195420) ALTv (test code = 28 U/L 5-50 1742-6) AST(SGOT) (test code 27 U/L 13-40 = 2114281225) eGFR (test code = mL/min/1.73m2 9704348676) ADELAIDA (test code = ADELAIDA) Association of Glomerular Filtration Rate (GFR) and Staging of Kidney Disease* + + +- +| GFR (mL/min/1.73 m2) ?| With Kidney Damage ?| ?Without Kidney Damage+ ------+ ----+ ------+| ?>90 ?| ?Stage one ?| ? Normal ?+ -+ + -+| ?60-89 ?| ?Stage two ?| ? Decreased GFR ? + + +- +| ?30-59 ?| ?Stage three ?| ? Stage three ? + + +- +| ?15-29 ?| ?Stage four ? | ? Stage four ?+ -+ + -+| ?<15 (or dialysis) ? ?| ?Stage five ? | ? Stage five ?+ -+ + -+ *Each stage assumes the associated GFR level has been in effect for at least three months. ?Stages 1 to 5, with or without kidney disease, indicate chronic kidney disease. Notes: Determination of stages one and two (with eGFR >59mL/min/1.73 m2) requires estimation of kidney damage for at least three months as defined by structural or functional abnormalities of the kidney, manifested by either:Pathological abnormalities or Markers of kidney damage (including abnormalities in the composition of the blood or urine or abnormalities in imaging tests). [facility]2022-09-02 17:28:47 Test Item Value Reference Range Interpretation Comments MAGNESIUM (test code = 9586473498) 2.2 mg/dL 1.7-2.4 Lab Interpretation (test code = Normal 85196-6) [facility]OSPH[facility]2022-09-02 17:28:27 Test Item Value Reference Range Interpretation Comments PHOSPHORUS (test code = 2284138944) 3.5 mg/dL 2.5-5 Lab Interpretation (test code = Normal 14750-6) [facility] HospitalURIC [id number] 17:28:07 Test Item Value Reference Range Interpretation Comments URIC ACID (test code = 4990232272) 5.0 mg/dL 3.6-8 Lab Interpretation (test code = Normal 20738-5) [facility] HospitalCB WITH [id number] 16:14:19 Test Item Value Reference Range Interpretation Comments WBC (test code = See_Comment [Automated 4490-2) message] The sy stem which generated this result transmitted reference range : 4.20 - 10.70 10*3/?L. The reference range was not used to interpret this result as normal/abnormal . RBC (test code = See_Comment H [Automated 789-8) message] The sy stem which generated this result transmitted reference range : 4.26 - 5.52 10*6/?L. The reference range was not used to interpret this result as normal/abnormal . HGB (test code = 17.0 g/dL 12.2-16.4 H 718-7) HCT (test code = 47.9 % 38.4-49.3 4544-3) MCV (test code = 86.2 fL 81.7-95.6 787-2) MCH (test code = 30.6 pg 26.1-32.7 785-6) MCHC (test code = 35.5 g/dL 31.2-35 H 786-4) RDW-SD (test code = 38.3 fL 38.5-51.6 L 54393-7) RDW-CV (test code = 12.2 % 12.1-15.4 788-0) PLT (test code = See_Comment [Automated 777-3) message] The sy stem which generated this result transmitted reference range : 150 - 328 10*3/ ?L. The reference r zita was not used to interpret this result as normal/abnormal . MPV (test code = 9.7 fL 9.8-13 L 01364-0) NRBC/100 WBC (test See_Comment [Automat ed code = 0974756988) message] The system which generated this result transmitted reference range : 0.0 - 10.0 /100 WBCs. The refer ence range was not u sed to interpret th is result as normal/abnormal . NRBC x10^3 (test code See_Comment [Auto mated = 9564770922) message] The s ystem which generated this result transmitted reference range : 10*3/?L. The reference range was not used to interpret this result as normal/abnormal . GRAN MAT (NEUT) % 50.2 % (test code = 770-8) IMM GRAN % (test code 0.50 % = 9116233198) LYMPH % (test code = 36.4 % 736-9) MONO % (test code = 8.1 % 5905-5) EOS % (test code = 3.9 % 713-8) BASO % (test code = 0.9 % 706-2) GRAN MAT x10^3(ANC) 3.74 10*3/uL 1.99-6.95 (test code = 1133809905) IMM GRAN x10^3 (test 0.04 10*3/uL 0-0.06 code = 4540962420) LYMPH x10^3 (test code 2.71 10*3/uL 1.09-3.23 = 731-0) MONO x10^3 (test code 0.60 10*3/uL 0.36-1.02 = 742-7) EOS x10^3 (test code = 0.29 10*3/uL 0.06-0.53 711-2) BASO x10^3 (test code 0.07 10*3/uL 0.01-0.09 = 704-7) Lab Interpretation Abnormal (test code = 91767-6) [facility] Notes Date/Time Note Provider Source 2022-11-16 09:00:00-00:00 Formatting of this note is d ifferent from the original. [facility] Images from the original note were not included. Venipuncture collection perf ormed by clean technique on the right anticubitus. Total of 1 attempts were made. Slight pressure and a bandage/dressing were applied to the site(s). The patient experienced no complications. The follow ing specimens were processed according to instructions and sent to [facility] laboratories per lab order on 11/16/2022: LT BLUE SST 1 RED LAV PPT DK GREEN (LiHep) DK GREEN (SodH) [place] DK BLUE (K2) DK BLUE (S) ACD Blood Culture NIPT/NTD "
--- NOTE | 2022-12-15 22:41 | RAD REPORT ---
EXAM DESCRIPTION: US - Extremity Venous Uni Ltd - 12/15/2022 10:36 pm CLINICAL HISTORY: PAIN Leg swelling and edema. COMPARISON: Extremity Venous Uni Ltd dated 10/18/2018 FINDINGS: Right lower extremity venous system was interrogated with Doppler technique. Normal flow, compressibility and augmentation was noted. There is no DVT present. IMPRESSION: No evidence of right lower extremity deep venous thrombosis.
--- NOTE | 2022-12-15 22:57 | EDPHYS ---
Physician Documentation [facility] Name: Leonard Fallon Age: 62 yrs Sex: Male : 1960 Arrival Date: 12/15/2022 Time: 21:53 Bed 5 Private MD: ED Physician Jono Sánchez HPI: 12/15 23:20 This 62 yrs old Male presents to ER via Wheelchair with complaints of Post Surgical kb Pain. 23:21 The patient presents with pain. The complaints affect the medial aspect of right thigh. kb Context: The problem was sustained at home. Onset: The symptoms/episode began/occurred just prior to arrival. Modifying factors: The symptoms are alleviated by nothing. the symptoms are aggravated by nothing. Associated signs and symptoms: The patient has no apparent associated signs or symptoms. Treatment prior to arrival includes: no previous treatment. Severity of symptoms: At their worst the symptoms were moderate, in the emergency department the symptoms are unchanged. The patient has not experienced similar symptoms in the past. The patient has been recently seen by a physician:. Pt reports he had knee surgery this morning by Dr Jarquin and this evening developed right medial thigh pain. Called Dr Jarquin and was told to come in for an US to rule out DVT. Historical: - Allergies: 22:04 Celebrex; kl 22:04 Lortab; kl - Home Meds: 22:10 Tramadol Oral [Active]; ibuprofen 800 mg Oral tablet [Active]; amlodipine 10 mg tablet kl daily [Active]; - PMHx: 22:04 Hypertension; Kidney stones; high cholesterol; hypertension; kl - PSHx: 22:04 right knee surgery; left knee replacement; renal surgery; kl - Immunization history:: Adult Immunizations not immunized. - Social history:: Smoking status: Patient denies any tobacco usage or history of. ROS: 23:21 Constitutional: Negative for fever, chills, and weight loss. kb 23:21 MS/extremity: Positive for pain. 23:21 All other systems are negative. Exam: 23:21 Constitutional: This is a well developed, well nourished patient who is awake, alert, kb and in no acute distress. Head/Face: Normocephalic, atraumatic. ENT: Moist Mucous membranes Cardiovascular: Regular rate and rhythm with a normal S1 and S2. No gallops, murmurs, or rubs. No pulse deficits. Respiratory: Respirations even and unlabored. No increased work of breathing. Talking in full sentences Skin: Warm, dry with normal turgor. Normal color. Neuro: Awake and alert, GCS 15, oriented to person, place, time, and situation. Moves all extremities. Normal gait. 23:21 Musculoskeletal/extremity: Extremities: grossly normal except: noted in the medial aspect of right thigh: pain, tenderness, surgical dressing in place over knee, Circulation is intact in all extremities. Sensation intact. Vital Signs: 22:02 BP 120 / 54; Pulse 82; Resp 20; Temp 98.4(TE); Pulse Ox 98% ; Weight 97.52 kg (R); kl Height 5 ft. 11 in. ; Pain 8/10; 22:13 BP 109 / 86; Pulse 75; Resp 16; Pulse Ox 97% on R/A; kd3 22:02 Body Mass Index 29.99 (97.52 kg, 180.34 cm) kl 22:02 Pain Scale: Adult kl Demetria Coma Score: 23:07 Eye Response: spontaneous(4). Motor Response: obeys commands(6). Verbal Response: rv oriented(5). Total: 15. MDM: 22:06 Patient medically screened. kb 23:22 Differential diagnosis: dvt, postop pain. Data reviewed: vital signs, nurses notes. kb Counseling: I had a detailed discussion with the patient and/or guardian regarding the historical points, exam findings, and any diagnostic results supporting the discharge/admit diagnosis, radiology results, the need for outpatient follow up, a orthopedic surgeon, to return to the emergency department if symptoms worsen or persist or if there are any questions or concerns that arise at home. 12/15 22:08 Order name: US Extremity Venous Unilateral Ltd; Complete Time: 22:53 kb Administered Medications: No medications were administered Disposition Summary: 12/15/22 22:56 Discharge Ordered Location: Home kb Condition: Stable kb Diagnosis - Pain in right leg kb Followup: kb - With: Emergency Department - When: As needed - Reason: Worsening of condition Followup: kb - With: Private Physician - When: 2 - 3 days - Reason: Recheck today's complaints, Continuance of care, Re-evaluation by your physician Discharge Instructions: - Discharge Summary Sheet kb - Musculoskeletal Pain kb Forms: - Medication Reconciliation Form kb - Thank You Letter kb - Antibiotic Education kb - Prescription Opioid Use kb - Patient Portal Instructions kb - Leadership Thank You Letter kb Signatures: Dispatcher [employer] Viry Álvarez, VICTOR MANUEL HOPSON-Marybeth Garcia, RN RN dave Corrections: (The following items were deleted from the chart) 22:06 22:04 Home Meds: hypertension; dave acosta
--- NOTE | 2022-12-15 22:57 | ER ---
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 Coronavirus screen: Vaccine status: Patient reports being unvaccinated. Ebola Screen: Patient negative for fever greater than or equal to 101.5 degrees Fahrenheit, and additional compatible Ebola Virus Disease symptoms. Initial Sepsis Screen: Does the patient meet any 2 criteria? No. Patient's initial sepsis screen is negative. Does the patient have a suspected source of infection? No. Patient's initial sepsis screen is negative. Risk Assessment: Do you want to hurt yourself or someone else? Patient reports no desire to harm self or others. Onset of symptoms was December 15, 2022. 22:02 Method Of Arrival: Wheelchair 22:02 Acuity: JOCELINE 3 kl Triage Assessment: 22:06 General: Appears distressed, uncomfortable, Behavior is cooperative, anxious. Pain: Complains of pain in medial aspect of right thigh Pain currently is 8 out of 10 on a pain scale. Pain began 3 hours ago. EENT: No deficits noted. Neuro: No deficits noted. Cardiovascular: No deficits noted. Respiratory: No deficits noted. Airway is patent Trachea midline Respiratory effort is even, unlabored, Respiratory pattern is regular, symmetrical. GI: No deficits noted. No signs and/or symptoms were reported involving the gastrointestinal system. : No deficits noted. No signs and/or symptoms were reported regarding the genitourinary system. Musculoskeletal: dressing to right knee. Historical: - Allergies: 22:04 Celebrex; kl 22:04 Lortab; kl - Home Meds: 22:10 Tramadol Oral [Active]; ibuprofen 800 mg Oral tablet [Active]; amlodipine 10 mg tablet kl daily [Active]; - PMHx: 22:04 Hypertension; Kidney stones; high cholesterol; hypertension; kl - PSHx: 22:04 right knee surgery; left knee replacement; renal surgery; kl - Immunization history:: Adult Immunizations not immunized. - Social history:: Smoking status: Patient denies any tobacco usage or history of. Screenin:[facility] ED Fall Risk Assessment (Adult) History of falling in the last 3 months, kd3 including since admission No falls in past 3 months (0 pts) Confusion or Disorientation No (0 pts) Intoxicated or Sedated No (0 pts) Impaired Gait Yes (1 pt) Mobility Assist Device Used Yes (1 pt) Altered Elimination No (0 pt) Score/Fall Risk Level 0 - 2 = Low Risk Maintained a safe environment. Abuse screen: Denies threats or abuse. Denies injuries from another. Nutritional screening: No deficits noted. Tuberculosis screening: No symptoms or risk factors identified. Assessment: 22:12 General: Appears uncomfortable, Behavior is calm, cooperative. Pain: Complains of pain kd3 in right leg and medial aspect of right thigh. Neuro: Level of Consciousness is awake, alert, obeys commands, Oriented to person, place, time, situation. Cardiovascular: Patient's skin is warm and dry. Respiratory: Airway is patent Trachea midline Respiratory effort is even, unlabored, Respiratory pattern is regular, symmetrical. Vital Signs: 22:02 BP 120 / 54; Pulse 82; Resp 20; Temp 98.4(TE); Pulse Ox 98% ; Weight 97.52 kg (R); Height 5 ft. 11 in. ; Pain 8/10; 22:13 BP 109 / 86; Pulse 75; Resp 16; Pulse Ox 97% on R/A; kd3 22:02 Body Mass Index 29.99 (97.52 kg, 180.34 cm) kl 22:02 Pain Scale: Adult Demetria Coma Score: 23:07 Eye Response: spontaneous(4). Motor Response: obeys commands(6). Verbal Response: rv oriented(5). Total: 15. ED Course: 21:58 Patient arrived in ED. kj1 22:04 Triage completed. kl 22:05 Viry Ferrari [facility]C [facility] kb 22:05 Jono Sánchez MD is Attending Physician. kb 22:08 Jazz Patino, DANIEL is Primary Nurse. kd3 22:13 Arm band placed on right wrist. kd3 22:13 Patient has correct armband on for positive identification. Provided Education on: . kd3 22:38 US Extremity Venous Unilateral Ltd In Process Unspecified. EDMS 23:06 No provider procedures requiring assistance completed. Patient did not have IV access rv during this emergency room visit. Administered Medications: No medications were administered Medication: 22:12 VIS not applicable for this client. kd3 Outcome: 22:56 Discharge ordered by . cuate 23:07 Discharged to home via wheelchair, with family. rv 23:07 Condition: good 23:07 Discharge instructions given to patient, Instructed on discharge instructions, follow up and referral plans. Demonstrated understanding of instructions, follow-up care. 23:07 Patient left the ED. rv Signatures: Dispatcher [employer] EDCT Viry Ferrari, EMILIANA-C EMILIANA-Marybeth Garcia RN RN Renaldo Reich RN RN Steph Ding Kyli RN RN kd3 Corrections: (The following items were deleted from the chart) 22:06 22:04 Home Meds: hypertension; dave acosta
[2022-12-15 23:28] VITALS: BP 109/86; TEMP 98.4; O2SAT 97
== END 2022-12-15 23:07 | disposition home or self-care (01) ==
LOC: ER 21:53
DX: M79.651 Pain in right thigh (principal); Z98.890 Other specified postprocedural states; Z96.652 Presence of left artificial knee joint; Z88.5 Allergy status to narcotic agent; Z88.6 Allergy status to analgesic agent
CPT/HCPCS: 93971; 99282